=== PATIENT | male | born 1955 | race Caucasian/White ===

== ENCOUNTER 2018-07-19 20:00 | Inpatient (IN) | payer OTHER ==
[~2018-07-19 20:00] MED LIST: ISOVUE-370 76%-LOCM 1 ML ONE; Iopamidol 370 76% 50 ML VIAL FS ONE
[2018-07-19 21:28] LABS: #Eosinphils 0.4 thou/uL (0.0-0.7); #Lymphocytes 1.8 thou/uL (1.20-3.40); #Monocytes 0.5 thou/uL (0.11-0.59); #Neutrophils 3.2 thou/uL (1.40-6.50); %Basophils 0.7 % (0.0-1.0); %Eosinophils 6.4 % (0.0-10.0); %Lymphocytes 29.7 % (21.0-51.0); %Monocytes 9.1 % (0.0-10.0); %Neutrophils 54.1 % (42.0-75.0); Hemoglobin 10.4 g/dL (14.0-18.0); Mean Corpuscular HGB CONC 31.7 g/dL (32.0-36.0); Mean Corpuscular Hemoglobin 24.8 pg (27.0-31.0); Mean Corpuscular Volume 78.3 fL (78.0-98.0); Mean Platelet Volume 6.8 fL (7.4-10.4); Platelet Count 235 thou/uL (130-400); RBC Distribution Width 14.1 % (11.5-14.5); Red Blood Cell (RBC) Count 4.18 mill/uL (4.70-6.10); White Blood Cell (WBC) Count 5.9 thou/uL (4.8-10.8)
[2018-07-19 21:33] LABS: PTT 29.5 SEC (22.9-36.1)
[2018-07-19 21:50] LABS: ALT (SGPT) 16 U/L (8-55); AST (SGOT) 19 U/L (5-34); Albumin 4.3 g/dL (3.4-4.8); Alkaline Phosphatase 84 U/L (40-150); Anion Gap 13 mmol/L (10-20); BUN (Urea Nitrogen) 11 mg/dL (8.4-25.7); Bilirubin, Total 0.4 mg/dL (0.2-1.2); Calc. Creatinine Clearance 0 mL/min (70-130); Calcium 9.7 mg/dL (7.8-10.44); Carbon Dioxide 29 mmol/L (23-31); Chloride 99 mmol/L (98-107); Estimated GFR-MDRD 85; Globulin 3.7 g/dL (2.4-3.5); Glucose 193 mg/dL (80-115); Potassium 3.9 mmol/L (3.5-5.1); Sodium 137 mmol/L (136-145)
[2018-07-19] MEDS ORDERED: Pantoprazole 40 MG VIAL ONE (22:02)
[2018-07-19] MEDS ORDERED: Ondansetron PF 4 MG/2 ML Vial ONE (23:31)
[2018-07-19] MEDS ORDERED: Morphine 4 MG/ML VIAL ONE (23:31)
[2018-07-20] MEDS ORDERED: Dextrose 5 % And 0.9 % NaCl 1,000 ML IV SCH (00:01)
[2018-07-20 00:05] VITALS: BMI 22.5
--- NOTE | 2018-07-20 00:15 | CT ---
CT OF THE ABDOMEN AND PELVIS WITH IV CONTRAST: 07/19/18 INDICATION: History of rectal bleeding and lower abdominal pain. FINDINGS: There is a suspected heterogeneous mass seen within the rectum with some intussusception of portions of the sigmoid colon into the proximal rectum. There is no evidence of colonic obstruction. There is a moderate amount of retained stool within the colon. There is moderate distention of the bladder wit h slight prominence of both renal collecting systems. There is a very tiny subcentimeter hypodensitie s within segment VII and of the right hepatic lobe. The pancreas, adrenal glands, and spleen appea r within normal limits. Small bowel is of normal caliber. There are scattered degenerative and osteoa rthritic change. IMPRESSION: 1. Findings suspicious for a mid rectal mass with some intussusception of portions of the sigmoi d colon and proximal rectum. There is no evidence of upstream colonic obstruction. There is a mild to moderate amount of retained stool within the colon. 2. Prominent distention of the bladder may reflect component of bladder outlet obstruction. Navjot mmend consideration for Brunson catheter. 3. Tiny right hepatic lobe hypodensities too small to characterize. 4. Other findings as above. POS: [facility]
[2018-07-20] MEDS ORDERED: Dextrose 50% Abboject 50 ML SYRINGE SLOW IVP PRN (01:04)
[2018-07-20] MEDS ORDERED: Dextrose 5% in Water 1,000 ML IV PRN (01:04)
[2018-07-20] MEDS ORDERED: Ondansetron PF 4 MG/2 ML Vial IVP PRN (01:04)
[2018-07-20] MEDS: Sodium Chloride 0.9% 1,000 ML IV SCH ×2 (01:25→14:55)
[2018-07-20] MEDS: Acetaminophen 325 MG TAB PO PRN ×2 (04:50→21:56)
[2018-07-20] MEDS ORDERED: GoLYTELY 4,000 ml Bottle PO SCH ×3 (05:55→13:15)
[2018-07-20 06:14] LABS: #Eosinphils 0.4 thou/uL (0.0-0.7); #Lymphocytes 1.4 thou/uL (1.20-3.40); #Monocytes 0.4 thou/uL (0.11-0.59); #Neutrophils 2.6 thou/uL (1.40-6.50); %Basophils 0.5 % (0.0-1.0); %Eosinophils 7.6 % (0.0-10.0); %Lymphocytes 29.8 % (21.0-51.0); %Monocytes 7.8 % (0.0-10.0); %Neutrophils 54.4 % (42.0-75.0); Mean Corpuscular HGB CONC 30.6 g/dL (32.0-36.0); Mean Corpuscular Hemoglobin 24.1 pg (27.0-31.0); Mean Corpuscular Volume 78.7 fL (78.0-98.0); Mean Platelet Volume 7.2 fL (7.4-10.4); Platelet Count 226 thou/uL (130-400); RBC Distribution Width 14.2 % (11.5-14.5); Red Blood Cell (RBC) Count 3.73 mill/uL (4.70-6.10); White Blood Cell (WBC) Count 4.8 thou/uL (4.8-10.8)
--- NOTE | 2018-07-20 06:16 | HP ---
REASON FOR ADMISSION: Bleeding per rectum, rectal mass. HISTORY OF PRESENT ILLNESS: The patient came to ER with complaints of large amount of blood per rectum around 3:00 p.m. He also has a colicky abdominal pain in his lower quadrant from 3-4 weeks which has been gradually worsening. The patient states he has had off and on small amounts of bleeding from his rectum, but not as large in amounts as today. No prior history of colonoscopy. No prior history of hematemesis or upper endoscopy. No history of peptic ulcer disease. PAST MEDICAL AND SURGICAL HISTORY: Hypertension, diabetes mellitus type 2, dyslipidemia. No prior surgical history. CURRENT MEDICATIONS: The patient is on carvedilol 25 mg daily, pravastatin 40 mg p.o. at bedtime, metformin with combination medication twice daily, Levemir 15 units subcu twice daily. ALLERGIES: No known drug allergies. PERSONAL HISTORY: Drinks 2-7 cans of beers daily. Does not abuse drugs. No history of smoking. Lives with his . FAMILY HISTORY: Mother in her 80s from brain aneurysm. Father of massive MO at the age of 60. CODE STATUS: FULL. Power of claims attorney is his . REVIEW OF SYSTEMS: The following complete review of systems was negative, unless otherwise mentioned in the HPI or below: Constitutional: Weight loss or gain, ability to conduct usual activities. Skin: Rash, itching. Eyes: Double vision, pain. ENT/Mouth: Nose bleeding, neck stiffness, pain, tenderness. Cardiovascular: Palpitations, dyspnea on exertion, orthopnea. Respiratory: Shortness of breath, wheezing, cough, hemoptysis, fever or night sweats. Gastrointestinal: Poor appetite, abdominal pain, heartburn, nausea, vomiting, constipation, or diarrhea. Genitourinary: Urgency, frequency, dysuria, nocturia. Musculoskeletal: Pain, swelling. Neurologic/Psychiatric: Anxiety, depression. Allergy/Immunologic: Skin rash, bleeding tendency. PHYSICAL EXAMINATION: GENERAL: The patient is a 63-year-old male who is currently not in any acute distress. VITAL SIGNS: Blood pressure 156/84, pulse 110 per minute, respiratory rate 18 per minute, temperature 98.4 degrees Fahrenheit, saturating 98% on room air. NECK: Supple, no elevated JVD. HEENT: Eyes: Extraocular muscles intact. Pupils reacting to light. Oral cavity: Mucous membranes are moist. No exudates or congestion. CARDIOVASCULAR SYSTEM: S1, S2 heard. Regular rhythm. RESPIRATORY SYSTEM: Air entry 1+ bilateral. No rales or rhonchi. ABDOMEN: Soft, bowel sounds heard. There is mild tenderness in the lower quadrants. No rigidity or guarding. EXTREMITIES: No peripheral edema or calf tenderness. VASCULAR SYSTEM: Peripheral pulses 1+ bilateral, no ischemic ulcerations or gangrene. CENTRAL NERVOUS SYSTEM: No gross focal deficits noted. The patient is alert, awake, oriented well. PSYCHIATRIC SYSTEM: The patient's mood is euthymic. No hallucinations or delusions. LABORATORY AND X-RAY FINDINGS: CT of the abdomen and pelvis done show findings suspicious of mid rectal mass with intussusception of portions of sigmoid colon and proximal rectum. No evidence of upstream colonic obstruction. There is mild to moderate amount of retained stool within the colon. There also prominent distention of bladder which could reflect outlet obstruction. White count of 5.9, H&H 10 and 32, platelet count 235, MCV 78 with 54% neutrophils. PT and INR 13 and 1.0. Electrolytes are stable. BUN 11, creatinine 0.9. Serum glucose 193, albumin is 4.3. Liver enzymes within normal limits. Plasma alcohol level is less than 10. Stool occult blood is positive. CLINICAL IMPRESSION AND PLAN: The patient will be admitted to medical floor for lower gastrointestinal bleed, rectal mass. The patient also has enlarged urinary bladder, likely has outlet obstruction versus due to rectal disease. We will keep him n.p.o. We will obtain GI consultation, Dr. Justin Jones who is cash applications associate today. He will be on normal saline at 70 mL per hour. We will obtain CEA levels and PSA levels as well. Also place him on Flomax. The patient will be on Humalog coverage for now as he is n.p.o. We will continue his carvedilol 3.125 mg twice daily. The patient's primary care physician is Dr. Abbey Powers in [place]. Addendum: he has tried multiple times to pass urine with very little trickle of urine streaming. Bladder residual is 800ml and will place a hutchison catheter. D/w this am about his CT findings and will see him shortly after he finishes golytely prep. [facility]
[2018-07-20 06:23] LABS: Anion Gap 11 mmol/L (10-20); BUN (Urea Nitrogen) 8 mg/dL (8.4-25.7); Calc. Creatinine Clearance 91 mL/min (70-130); Calcium 8.7 mg/dL (7.8-10.44); Carbon Dioxide 27 mmol/L (23-31); Chloride 104 mmol/L (98-107); Estimated GFR-MDRD Greater than 90; Glucose 160 mg/dL (80-115); Potassium 3.9 mmol/L (3.5-5.1); Sodium 138 mmol/L (136-145)
[2018-07-20 06:40] LABS: CEA, Serum 1.62 ng/mL (< or = 5.0)
[2018-07-20 06:41] LABS: PSA-Asymptomatic (SCREENING) 0.76 ng/mL (0-4.0)
[2018-07-20] MEDS: Pantoprazole 40 MG VIAL IVP SCH ×2 (08:58→21:56)
[2018-07-20] MEDS: Tamsulosin HCl 0.4 MG CAP PO SCH ×2 (08:58→21:56)
--- NOTE | 2018-07-20 09:13 | PRG ---
DATE OF SERVICE: 07/20/2018 SUBJECTIVE: The patient was seen and examined at bedside. He says that he feels significantly jarrell r this morning. He was admitted last night and he is getting bowel prep for possible scoping by the GI. He has some discomfort in the lower abdomen, but otherwise he is feeling fine. No more bleeding from his rectum. He is n.p.o. OBJECTIVE: VITAL SIGNS: Blood pressure is 150/75, pulse is 93, temperature 97.4, respiratory rate is 16, O2 sat urations 100% on room air. HEENT: His head is atraumatic, normocephalic. Eyes are PERRLA. Sclerae nonicteric. Oral mucosa is slightly dry. NECK: Supple, no lymphadenopathy. Thyroid is not palpable. LUNGS: Clear. HEART: S1, S2 normal, no S3, no S4, no murmur. ABDOMEN: Soft. Mildly tender in the lower parts. No guarding, no masses. Bowel sounds are present , no organomegaly. EXTREMITIES: No clubbing, cyanosis or edema. NEUROLOGIC: He is alert and oriented x4. There is not any sensorimotor deficits present. Cranial n erves are intact. LABORATORY DATA: Showed white count of 4.8, hemoglobin 9.0, hematocrit 29.4, platelet count is 226. Normal electrolytes, BUN 8, creatinine 0.77. Glycemia is ranging from 158-193. CEA is 1.62. PROOF CLERK 0 .76. IMPRESSION: 1. Lower gastrointestinal bleeding which slowed down, not as bad as it was yesterday, but there is s uspicion of a rectal mass. The patient is getting prepped for the scoping and GI specialist, Dr. Mason re is going to make decision about the next evaluation step. The patient's hemoglobin is 9.4, yester day it was 10.4, so this reflects the blood loss. 2. Diabetes mellitus. 3. Hypertension. 4. Hyperlipidemia. PLAN: To keep him n.p.o., continue his IV fluids at 70 mL per hour. He was started on Flomax yester day. We will continue sliding scale p.r.n. He will be seen by Dr. Jones and Dr. Boyer for GI and Ur ology evaluation today. We will use DVT prophylaxis with sequential compression devices and no hepar in.
[2018-07-20] MEDS ORDERED: PROPOFOL 200 MG/20 ML VIAL ONE (10:43)
[2018-07-20] MEDS ORDERED: Lidocaine 1% PF 5 ML VIAL ONE (10:43)
--- NOTE | 2018-07-20 13:50 | CON ---
DATE OF CONSULTATION: 07/20/2018. CHIEF COMPLAINT: Blood in the stool. HISTORY OF PRESENT ILLNESS: Mr. Montiel is a 63-year-old man who has had mild on and off rectal bleedi ng over the last month, a couple times a week; however, yesterday he developed a larger volume red bl ood from the rectum mixed with clots. He had pretty severe lower cramping abdominal pain associated with that, which is currently resolved. He has had no nausea or vomiting. He had trouble urinating along with these symptoms. He has had no fever. He has lost around 14 pounds over the last year. H is lower abdominal pain went on for several hours last night, but it is now resolved. PAST MEDICAL HISTORY: Hypertension, diabetes mellitus, dyslipidemia. PAST SURGICAL HISTORY: Had a cyst on his shoulder removed and a finger surgery in the past. FAMILY HISTORY: Positive for colon cancer in an uncle. HABITS: He drinks around a six pack a day. He can drink up to 12 pack a day. No drugs. No smoking . ALLERGIES: No known drug allergies. MEDICATIONS: Prior to admission, insulin, pravastatin, carvedilol. REVIEW OF SYSTEMS: Negative x10 systems reviewed except as stated in history of present illness. PHYSICAL EXAMINATION: VITAL SIGNS: Temperature 98.0, pulse 84, blood pressure 147/76. GENERAL: He is in no acute distress. He is alert and oriented x3. HEENT: Eyes have no scleral icterus. Oropharynx is clear, without lesions. NECK: No cervical or supraclavicular lymphadenopathy. LUNGS: Clear to auscultation bilaterally. HEART: Regular rate and rhythm without murmur. ABDOMEN: Soft, nontender, nondistended. Bowel sounds are present. EXTREMITIES: No lower extremity edema. NEUROLOGIC: Cranial nerves are grossly intact. LABORATORY DATA: White blood cell count 4.8, hemoglobin 9.0, MCV 78.7, platelets 226. INR 1.0. Cre atinine 0.77, bilirubin 0.4, AST 19, ALT 16, alkaline phosphatase 84, albumin 4.3. CEA 1.62. IMPRESSION: 1. Rectal mass by CT scan. 2. Hematochezia, rule out colon cancer. 3. Microcytic anemia. 4. Alcohol abuse. 5. He has had some degree of urinary outlet obstructive symptoms. He has a Brunson catheter in place now. RECOMMENDATIONS: We will plan colonoscopy today.
[2018-07-20] MEDS ORDERED: Promethazine HCl 25 MG/ML VIAL IM PRN (18:57)
[2018-07-20] MEDS ORDERED: Ondansetron HCl/PF 4 MG/2 ML Vial IVP PRN (18:57)
[2018-07-20] MEDS ORDERED: Promethazine HCl 25 MG/ML VIAL SLOW IVP PRN (18:57)
--- NOTE | 2018-07-20 20:48 | RAD ---
PA AND LATERAL CHEST: Indication: Weight loss. Comparison: None. FINDINGS: Lungs are clear. Cardiomediastinal silhouette is within normal limits. No acute osseous abnormality i s evident. IMPRESSION: No acute cardiopulmonary abnormality. POS: [facility]
[2018-07-20] MEDS: Neomycin 500 mg Tablet PO SCH ×2 (21:57→23:50)
[2018-07-20] MEDS: Erythromycin Base 250 MG TAB PO SCH ×2 (21:57→23:50)
--- NOTE | 2018-07-21 03:03 | OP ---
DATE OF PROCEDURE: 07/20/2018 PROCEDURES: Colonoscopy with biopsy and snare polypectomy. PREOPERATIVE DIAGNOSIS: Abnormal CT scan showing a rectal mass. PROCEDURE NOTE: Informed consent was obtained from the patient. He received 6 liters of GoLYTELY pr ior to the procedure. Rectal exam was performed and the mass could be palpated in the distal rectum. The colonoscope was advanced to the rectum, there was a large necrotic circumferential mass, protru ding down to the distal rectum. This was causing an area of intussusception such that the base of th e mass was either in the proximal rectum and distal sigmoid. The mass was advanced upwards with the scope and then the scope ultimately could be passed through the mass into the more proximal colon. T he scope was advanced to the cecum where the ileocecal valve and appendiceal orifice were clearly jessica ntified. There were areas in the cecum and ascending colon had some residual stool, but overall adeq uate views were obtained and the colonic mucosa was otherwise normal. There was a 5-6 mm polyp remov ed by snare cautery polypectomy from the rectum, 6 cm above the anal verge. Retroflexed views could not be obtained in the rectum due to inadequate space. The prolapse of the mucosa back towards the r ectum occurred at least above 8 cm internally. Biopsies were obtained from the mass. IMPRESSION: 1. Proximal rectal versus distal sigmoid mass, which is circumferential and large and necrotic causi ng intussusception back towards the distal rectum. Biopsies were obtained. 2. A 5 mm to 6 mm polyp removed by cold snare polypectomy from the rectum at 6 cm above the anal lyssa ge otherwise normal colonoscopy. Parts of the cecum and ascending colon were not well visualiz ed with mild retention of stool. RECOMMENDATIONS: 1. Await histopathology. 2. Recommendation is to proceed with surgical resection of the mass. This may be distal sigmoid lyssa aliya proximal rectum. The mass is causing urinary obstruction. The mucosa has become somewhat dusky in the normal area that has the intussusception. The mass is circumferential and near obstructing an d overall I think he will ultimately need to proceed with surgery rather than starting with the radia tion therapy first. 3. Repeat colonoscopy in 1 year.
--- NOTE | 2018-07-21 03:38 | CON ---
DATE OF CONSULTATION: 07/20/2018 DATE OF ADMISSION: 07/19/2018 REASON FOR CONSULTATION: 1. Urinary retention. 2. Bleeding per rectum secondary to rectal mass. HISTORY OF PRESENT ILLNESS: Mr. Elvis Montiel is a pleasant 63-year-old white male with a presentati on of rectal bleeding and rectal mass who over the last month has also developed simultaneously obstr uctive voiding symptoms. The patient reports frequent small volume voids and in addition to that, che s a complaint of a full bladder. He presented via the emergency department last night and underwent Brunson catheter placement, which returned over 800 mL of urine, so patient is admitted and has undergo ne colonoscopic evaluation today and has a rectal mass. Patient is to undergo surgical resection of his rectal mass and being consulted specifically with regard to the patient's urinary retention episo de. ALLERGIES: No known drug allergies. OUTPATIENT MEDICATION HISTORY: 1. Patient is on Carvedilol 25 mg p.o. daily. 2. Pravastatin 40 mg p.o. at bedtime. 3. Metformin a combination medication twice daily. 4. Levemir 15 units subcutaneous twice daily. PAST MEDICAL HISTORY: 1. Hypertension. 2. Diabetes mellitus, type 2. 3. Dyslipidemia. No previous surgical history is other than procedures performed during this hospit alization. FAMILY MEDICAL HISTORY: Patient's mother is in her 80s of a brain aneurysm. Patient's [facility] er of a massive heart attack at the age of 60. SOCIAL HISTORY: Patient reports that he is not a smoker, does not abuse drugs, but does drink betwee n 2 and 7 cans of beer per day, which would place him in the alcoholic range. Patient resides with h is . REVIEW OF SYSTEMS: Constitutional: Patient does not report fever or chills, does report gross blood per rectum and urinary retention symptoms as noted. Skin: No complaints of rash, lesions, or other abnormalities. Head, Eyes, Ears, Nose, And Throat: Negative. Cardiovascular: Positive for occasi onal palpitations and dyspnea with exertion. Respiratory: Positive for a degree of shortness of ned ath. No current cough or hemoptysis. Gastrointestinal: Patient has had poor appetite, abdominal pa in, and heartburn. He does report that he had suprapubic discomfort, which is resolved with placemen t of Brunson catheter. Genitourinary: Patient reports he has had urinary urgency, frequency, dysuria, and nocturia. Patient reports frequent small volume voids and has sensation of incomplete bladder e mptying. Musculoskeletal: Negative. Neurologic: Negative. PHYSICAL EXAMINATION: VITAL SIGNS: Patient is afebrile with current temperature 97.6, pulse 93, respirations 18, O2 satura tion on room air is 99%, blood pressure is 144/70. GENERAL: This is a pleasant, relatively thin build white male in no apparent distress. HEAD, EYES, EARS, NOSE, AND THROAT: Extraocular movements are intact. Sclerae are anicteric. Oroph arynx is clear. NECK: Supple. LUNGS: Clear to auscultation bilaterally. CARDIAC: Regular rate and rhythm without murmur, rub, or gallop. ABDOMEN: Soft and nontender superiorly inferior to the umbilicus also soft to nontender at the prese nt time. Patient reports prior to catheter placement, he felt very full below the umbilicus and abov e the pubic symphysis. The symptoms largely resolved with placement of the Brunson catheter. GENITOURINARY: Indwelling Brunson catheter is in place, is draining straw-colored urine with no eviden ce of blood. Phallus is without lesion. Palpation of inguinal canals finds no evidence of inguinal canal hernia. Scrotum Testes are found present bilaterally in the scrotum. They are smooth, anodula r, nontender. There is no dominant mass noted. RECTAL: Digital rectal examination was performed. Patient has a skin tag in the midline at 6 o'cloc k. This is relatively firm. Digital rectal examination was performed. Patient's prostate gland is found to be tender approximately 35 grams in size. It is more or less diffusely indurated, which wou ld be consistent with prostatitis. Deeper palpation of the patient's rectum finds a palpable mass, w hich probably originates from the posterior rectal wall superiorly. This is soft and fleshy and appe ars to be a portion of a pedunculated mass. There is no gross bleeding. Palpation was not carried a suri 9 cm. The prostate process and the rectal mass process appeared to be separate processes to my examination. EXTREMITIES: Within normal limits. No costovertebral angle tenderness, no point tenderness along th e course of the spine. No surgical scars. PSYCHIATRIC: Patient has no significant distress did seem reassured that I told him that these were probably two separate processes. He has accepted the decision to proceed with a surgical interventio n for his rectal mass. LABORATORY AND STUDIES: Patient's white count is not elevated at 4,800, hemoglobin is 9 with hematoc rit of 29.4. There is no left shift present. Coags are within normal limits with a PT of 13, aPTT 2 9.5, INR 1.0. Serum chemistries, patient's electrolytes within normal limits. Current blood urea ni trogen is 8 with a creatinine of 0.77, glucose remains elevated at 193 and 160. A urinalysis does not appear to have been performed. Patient had a prostate specific antigen obtaine d on 07/20/2018, which returned at 0.76 nanograms per mL suggestive of a relatively small prostate an d not prostate cancer. Estimated glomerular filtration rate using MDRD formula is 90. ASSESSMENT AND PLAN: 1. Prostatitis. Patient probably should be covered longer term by 1-month course of ciprofloxacin t herapy. 2. Acute urinary retention, this is likely due to combination of factors given the patient's present ation, I would recommend starting with Flomax b.i.d., finasteride 5 mg per day, and the antibiotic th erapy as outlined for prostatitis. Voiding trial may be performed postoperatively. Patient has repe titive retention episodes postoperatively, may be managed on the medications as outlined above and re ferred to my office for a voiding trial. 3. Male health issues. Digital rectal examination not suspicious for prostate cancer. PSA within n ormal range. 4. Rectal mass and urinary retention as discussed with patient and noted on physical examination as well as subsequent review of the patient's CT scan from 07/19/2018. Patient's rectal mass process an d his current urinary retention episode appeared to be due to separate processes. At the present or[place] e, I am not anticipating a need for intraoperative evaluation of this patient. Instead, I think, his rectal mass could be resected and patient have either appropriate diversion or primary reanastomosis based on findings. At the present time, current process does not appear to involve the prostate gland directly.
[2018-07-21] MEDS ORDERED: Morphine 4 MG/ML VIAL SLOW IVP PRN (03:41)
[2018-07-21] MEDS: Sodium Chloride 0.9% 1,000 ML IV SCH ×3 (05:22→18:05)
[2018-07-21 05:59] LABS: #Eosinphils 0.1 thou/uL (0.0-0.7); #Monocytes 0.2 thou/uL (0.11-0.59); %Basophils 0.4 % (0.0-1.0); %Eosinophils 1.8 % (0.0-10.0); %Lymphocytes 18.4 % (21.0-51.0); %Monocytes 4.5 % (0.0-10.0); %Neutrophils 74.9 % (42.0-75.0); Hemoglobin 8.2 g/dL (14.0-18.0); Mean Corpuscular HGB CONC 29.9 g/dL (32.0-36.0); Mean Corpuscular Hemoglobin 24.1 pg (27.0-31.0); Mean Corpuscular Volume 80.5 fL (78.0-98.0); Mean Platelet Volume 7.3 fL (7.4-10.4); Platelet Count 207 thou/uL (130-400); Red Blood Cell (RBC) Count 3.41 mill/uL (4.70-6.10); White Blood Cell (WBC) Count 5.3 thou/uL (4.8-10.8)
[2018-07-21 06:12] LABS: Iron 16 ug/dL (65-175); Iron Binding Capacity, Total 338 mcg/dL (261-462)
[2018-07-21] MEDS: Cipro 250 MG TAB PO SCH ×2 (06:36→21:34)
[2018-07-21] MEDS ORDERED: Meropenem 2 GM, Admixture Fee 1 EACH in Sodium Chloride 0.9% 100 ML IVPB SCH (08:00)
--- NOTE | 2018-07-21 08:14 | CON ---
DATE OF CONSULTATION: 07/21/2018 HISTORY OF PRESENT ILLNESS: Elvis Montiel is a 63-year-old male patient presents to the emerge ncy room 07/19/2018 and admitted to the Hospitalist seen by Dr. Justin Jones, musical instrument maker, earlene Boyer, urologist. The patient presented with abdominal pain, constipation and urinary re tention, blood per rectum and worsening constipation. 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 He does lifting and is very active. He has had cousins and uncles with history of colon cancer, but no immediate family history of colo n cancer. The patient's CAT scan reveals significant constipation and a rectosigmoid mass. His CEA level was normal at 1.62. His hemoglobin was 10.4 and after hydration 8.2 this morning. His renal f unction is normal. On his CAT scan, he had tremendous bladder retention [address] Boyer has seen him and diagnosed with proctitis and recommend a 1 month course of Cipro, acute urinary retention due to the prostatitis and rectosigmoid mass. ALLERGIES: None. TOBACCO: None. ALCOHOL: Six beers or more a day. He often go several days without drinking without any problems. PAST SURGICAL HISTORY: Noncontributory. PAST MEDICAL HISTORY: Diabetes mellitus type 2 on insulin and oral hypoglycemics, hypertension. The patient was no history of cardiac problems or symptomatology. MEDICATIONS AT HOME: Dapagliflozin-metformin (Xigduo XR) 1 tablet daily, pravastatin daily, carvedi lol 25 mg a day. He is on sliding scale insulin. He is on Flomax 0.4 mg p.o. b.i.d. started this ho spitalization, Cipro 500 mg b.i.d. he will be on a month per Dr. Boyer, Proscar 5 mg a day started th is hospitalization. REVIEW OF SYSTEMS: Ten point noncontributory. No cardiac symptomatology. PHYSICAL EXAMINATION: VITAL SIGNS: Height 5 foot 7, 144 pounds, 22 BMI, 98.1, 93, 137/73. HEENT: Unremarkable. LUNGS: Clear to auscultation. CARDIAC: Regular rate and rhythm without murmur or gallop. ABDOMEN: Soft, nontender, nondistended, scaphoid abdomen. EXTREMITIES: Palpable pulses. No ankle edema. LABORATORY DATA: White count 5, hemoglobin 8.2. Basic metabolic profile normal. BUN 8, creatinine 0.77, glucose 160 to 126, CEA level 1.62. ASSESSMENT AND PLAN: 1. Rectosigmoid mass. The exact location of the mass is uncertain, it is an intussusception type pi cture with prolapse and I have discussed with Dr. Justin Jones rather than terry adjunctive therapy, w ould recommend primary resection with laparoscopic assisted low anterior resection with hopefully evelia cristobal anastomosis with the possibility of a diverting protective ileostomy. I discussed with the pricila ent and his daughter. He is agreeable. Questions have been answered. Risk of infection, bleeding, reoperation discussed. He will have a Brunson catheter postoperatively, probably longer than usual due to his presenting urinary retention [address] Boyer, initiated on Flomax. 2. Diabetes mellitus. 3. Hypertension. 4. Alcohol abuse.
[2018-07-21 08:16] LABS: Hemoglobin A1c 8.7 % (4.0-6.0)
--- NOTE | 2018-07-21 08:30 | PRG ---
DATE OF SERVICE: 07/21/2018 SUBJECTIVE: The patient is seen and examined at bedside. He was just seen by Dr. Bautista for General Surgery evaluation. He is going to have surgery on his rectal tumor this afternoon. OBJECTIVE: VITAL SIGNS: Blood pressure is 137/73, pulse is 93, temperature is 98.1, respiratory rate is 20, O2 saturation is 97% on room air. HEENT: Head is atraumatic, normocephalic. Eyes are PERRLA. Sclerae are nonicteric. Oral mucosa is somewhat dry. NECK: Supple, no lymphadenopathy. Thyroid is not palpable. LUNGS: Clear. HEART: S1, S2 normal, no S3, no S4, no murmur. ABDOMEN: Soft, nontender, nondistended. Bowel sounds are present. There is some mild discomfort on the lower parts of the abdomen and pelvis in palpation. No guarding, no masses. EXTREMITIES: No clubbing, cyanosis or edema. NEUROLOGIC: He is alert and oriented x4. There is not any sensory or motor deficits. Cranial nerve s are intact. LABORATORY DATA: Showed white count of 5.3, hemoglobin at 8.2, hematocrit 27.5, platelet count is 20 7, iron is 16, total iron binding capacity is 338 and ferritin level is 7.16, glycemia is ranging fro m 121-158 IMPRESSION: 1. Rectal mass as a source of lower GI bleeding. The patient improved in terms of amount of bleedin g he has and just has some watery diarrhea on and off with some blood, not much. He underwent colono scopy by Dr. Jones yesterday who identified proximal rectal versus distal sigmoid mass, which was cir cumferential and large and necrotic causing intussusception back towards the distal rectum. Biopsies were obtained. Also, there was 5 mm to 6 mm polyp removed by cold snare polypectomy from the rectum at 6 cm above the anal verge. Otherwise, he had normal colonoscopy. 2. Anemia secondary to #1. 3. Prostatitis. The patient was seen by Dr. Boyer for urology evaluation, he is supposed to be on c iprofloxacin for 1 month. 4. Acute urinary retention, which is most likely due to combination of factors given the patient's p resentation. He started on Flomax and finasteride and continued on antibiotics. The plan is to do a voiding trial after the surgery. 5. Diabetes mellitus, well-controlled. 6. Hypertension, stable. 7. Hyperlipidemia, stable. PLAN: As mentioned above, surgery will be today, this afternoon. Continue IV fluids. Awaiting Path ology report from biopsy done yesterday. Continue his sliding scale with Humalog. Continue meropene m 2 grams. Continue ciprofloxacin and deep venous thrombosis prophylaxis. We will try to find out h is home medications. We know that he is on carvedilol, pravastatin, and dapagliflozin at home.
[2018-07-21] MEDS: Tamsulosin HCl 0.4 MG CAP PO SCH ×2 (09:37→21:34)
[2018-07-21] MEDS: Pantoprazole 40 MG VIAL IVP SCH ×2 (09:37→21:33)
[2018-07-21] MEDS: Finasteride 5 MG TAB PO SCH (09:37)
[2018-07-21] MEDS ORDERED: Lorazepam 1 MG TAB PO PRN (12:15)
[2018-07-21 13:11] LABS: CKMB 1.7 ng/mL (0-6.6); Troponin I Less than 0.010 ng/mL (< 0.028)
[2018-07-21] MEDS ORDERED: PROPOFOL 200 MG/20 ML VIAL ONE (13:12)
[2018-07-21] MEDS ORDERED: Ondansetron PF 4 MG/2 ML Vial ONE (13:12)
[2018-07-21] MEDS ORDERED: Lidocaine 1% PF 5 ML VIAL ONE (13:12)
[2018-07-21] MEDS ORDERED: Glycopyrrolate 0.2 MG/ML 5 ML SYRINGE ONE (13:12)
[2018-07-21] MEDS ORDERED: Ketorolac Tromethamine 30 MG/ML VIAL ONE (13:12)
[2018-07-21] MEDS ORDERED: Dexamethasone 20 MG/5 ML VIAL ONE (13:12)
[2018-07-21] MEDS ORDERED: Ketorolac Tromethamine 30 MG/ML VIAL IVP PRN (16:10)
[2018-07-21] MEDS ORDERED: Ondansetron HCl/PF 4 MG/2 ML Vial IVP PRN ×2 (16:10→20:12)
[2018-07-21] MEDS ORDERED: Midazolam HCl 2 mg/2 ml Vial ONE (16:14)
--- NOTE | 2018-07-21 16:40 | EKG ---
Test Reason : Blood Pressure : / mmHG Vent. Rate : 091 BPM Atrial Rate : 091 BPM P-R Int : 184 ms QRS Dur : 092 ms QT Int : 386 ms P-R-T Axes : 060 -34 042 degrees QTc Int : 474 ms Normal sinus rhythm Left axis deviation Inferior infarct (cited on or before 19-JUL-2018) Abnormal ECG When compared with ECG of 19-JUL-2018 23:03, (Unconfirmed) Incomplete right bundle branch block is no longer Present Confirmed by DR. Rzaa WILSON ([id number]) on 07/21/2018 4:40:18 PM Referred By: MARY ANNE Confirmed By:DR. Raza WILSON
--- NOTE | 2018-07-21 16:48 | EKG ---
Test Reason : Blood Pressure : / mmHG Vent. Rate : 098 BPM Atrial Rate : 098 BPM P-R Int : 176 ms QRS Dur : 084 ms QT Int : 370 ms P-R-T Axes : 053 -20 027 degrees QTc Int : 472 ms Normal sinus rhythm Low voltage QRS When compared with ECG of 20-JUL-2018 22:34, (Unconfirmed) No significant change was found Confirmed by DR. Raza WILSON ([id number]) on 07/21/2018 4:48:26 PM Referred By: ABEBE Confirmed By:DR. Raza WILSON
[2018-07-21] MEDS ORDERED: Fentanyl 250 MCG/5 ML VIAL ONE ×2 (17:19→19:20)
[2018-07-21] MEDS ORDERED: Bupivacaine/Epinephrine 0.25% 30 ML VIAL ONE (17:35)
[2018-07-21] MEDS ORDERED: HYDROmorphone 2 MG/ML VIAL SLOW IVP PRN (20:12)
[2018-07-21] MEDS ORDERED: Morphine Sulfate 2 MG/ML SYRINGE SLOW IVP PRN (20:12)
[2018-07-21] MEDS ORDERED: Promethazine HCl 25 MG/ML VIAL SLOW IVP PRN (20:12)
[2018-07-21] MEDS ORDERED: Promethazine HCl 25 MG/ML VIAL IM PRN (20:12)
[2018-07-21] MEDS ORDERED: Meperidine HCl/PF 25 MG/ML VIAL SLOW IVP PRN (20:12)
[2018-07-21] MEDS ORDERED: PACU-Morphine 4MG/ML VIAL SLOW IVP PRN (20:12)
[2018-07-21] MEDS ORDERED: Labetalol HCl 100 MG/20 ML VIAL ONE (20:34)
[2018-07-21] MEDS ORDERED: Fentanyl 100 MCG/2 ML VIAL ONE (20:47)
[2018-07-21] MEDS ORDERED: Labetalol HCl 100 MG/20 ML VIAL SLOW IVP SCH (21:30)
[2018-07-21] MEDS: Enoxaparin Sodium 40 MG/0.4 ML SYRINGE SC SCH (21:33)
[2018-07-21] MEDS: Oxazepam 10 MG CAP PO SCH (21:34)
[2018-07-22] MEDS: Acetaminophen 1,000 MG in Premix Bag 1 BAG IVPB SCH ×3 (00:55→12:06)
[2018-07-22] MEDS: Ketorolac Tromethamine 30 MG/ML VIAL IVP SCH ×3 (00:55→17:57)
--- NOTE | 2018-07-22 02:16 | OP ---
PREOPERATIVE DIAGNOSES: Sigmoid tumor with intussusception colorectal (sigmoid colon into the rectum ). Near obstructing tumor. POSTOPERATIVE DIAGNOSES: Sigmoid tumor with intussusception colorectal (sigmoid colon into the rectu m). Near obstructing tumor. PROCEDURES: Laparoscopic mobilization of splenic flexure, left colon, with infraumbilical open incis ion to reduce intussusception and a colorectal resection with low anterior resection 33 mm EEA staple r, colorectal anastomosis checked under water and no leak, good bowel prep. No other remarkable find ings. Large tumor mass in the mid to slightly distal sigmoid colon intussuscepting. SURGEON: Dr. Saeed Bautista ANESTHESIA: General. ESTIMATED BLOOD LOSS: 100 mL BLOOD TRANSFUSED: None. DESCRIPTION OF PROCEDURE: The patient was taken to the operating room where under general anesthesia in dorsal lithotomy position, abdomen prepared with ChloraPrep. Perineum, buttocks, scrotum, and pe nis prepared with Betadine, draped in routine fashion. Infraumbilical incision made. Pneumoperitone um to 15 mmHg obtained with the Veress needle, replacing it with a 5 port and laparoscope inserted. Right lower quadrant incision made and a 12-port placed. Right upper quadrant, left upper quadrant i ncision made and 5 mm ports placed. The distal transverse colon, splenic flexure mobilized with the LigaSure, taking down the gastrocolic ligament from the distal transverse colon, mobilizing the splen ic flexure. Sigmoid colon mobilized with attachments using the LigaSure. Left ureter identified and kept free of harm. Colon mobilized and it was appreciated that there is intussusception sigmoid col on to the rectum and I could not reduce this laparoscopically. This required infraumbilical incision made midline to the pubis skin and subcutaneous tissue. Bookwalter retractor was used using manual retraction and counter pushing with the other hand. I was able to reduce intussusception revealing a near obstructing mid to slightly distal sigmoid colon mass. Mesentery of the descending colon, sigm oid colon junction taken down with the LigaSure and dissection carried down keeping ureter free of hce rm, dividing the left colic vessels between clamps and ligated with 2-0 silk ties and dissection bray ied down to the presacral area. The colorectal area was divided with a contour stapler and using the cautery. The junction of the descending sigmoid colon, the colon was divided with the cautery and a pursestring suture of 2-0 Prolene placed and a 33 mm EEA anvil had been placed in the colon and purs estring suture secured. We did change gloves and abdominal cavity irrigated. The rectal stump was e valuated and noted to be skeletonized adequate fat. Tug Master then turned attention to the rectum wh ere serial dilators were placed easily and then a 33 mm EEA stapler placed and advancing the post of the staple line of the rectal stump and connected to the anvil in the proximal colon approximating th ashley within the torque fire range and fired the stapler, loosening it, removing it, noting intact donu ts. It was checked under water without leak. Colorectal serosa muscle layer approximated with inter rupted Lembert suture of 3-0 silk. Good hemostasis noted. Sponge, instrument counts were correct. No other abnormalities were noted. Midline fascia closed with continuous suture of #1 PDS. Skin and subcutaneous tissues irrigated, skin approximated with subcuticular suture of 4-0 Monocryl and Idalia Glue applied. Local anesthetic infiltrated into the skin and subcutaneous tissue about the operative site. The patient tolerated the procedure well.
[2018-07-22 05:08] LABS: #Lymphocytes 0.6 thou/uL (1.20-3.40); #Monocytes 0.2 thou/uL (0.11-0.59); #Neutrophils 8.2 thou/uL (1.40-6.50); %Eosinophils 0.1 % (0.0-10.0); %Monocytes 2.6 % (0.0-10.0); %Neutrophils 90.3 % (42.0-75.0); Mean Corpuscular HGB CONC 30.2 g/dL (32.0-36.0); Mean Corpuscular Hemoglobin 24.6 pg (27.0-31.0); Mean Corpuscular Volume 81.5 fL (78.0-98.0); Mean Platelet Volume 7.2 fL (7.4-10.4); Platelet Count 202 thou/uL (130-400); RBC Distribution Width 13.7 % (11.5-14.5); Red Blood Cell (RBC) Count 3.27 mill/uL (4.70-6.10); White Blood Cell (WBC) Count 9.1 thou/uL (4.8-10.8)
[2018-07-22 05:41] LABS: Anion Gap 15 mmol/L (10-20); BUN (Urea Nitrogen) 9 mg/dL (8.4-25.7); Calc. Creatinine Clearance 100 mL/min (70-130); Calcium 8.5 mg/dL (7.8-10.44); Carbon Dioxide 17 mmol/L (23-31); Chloride 110 mmol/L (98-107); Estimated GFR-MDRD Greater than 90; Glucose 210 mg/dL (80-115); Potassium 4.4 mmol/L (3.5-5.1); Sodium 138 mmol/L (136-145)
[2018-07-22] MEDS: Cipro 250 MG TAB PO SCH ×2 (06:33→21:23)
[2018-07-22] MEDS ORDERED: Carvedilol 25 MG TAB PO SCH (09:00)
[2018-07-22] MEDS: Morphine 2 MG/ML SYRINGE SLOW IVP PRN ×2 (09:10→14:37)
[2018-07-22] MEDS: Pantoprazole 40 MG VIAL IVP SCH ×2 (09:12→21:23)
[2018-07-22] MEDS: Tamsulosin HCl 0.4 MG CAP PO SCH ×2 (09:13→21:23)
[2018-07-22] MEDS: Folic Acid 1 MG TAB PO SCH (09:13)
[2018-07-22] MEDS: Oxazepam 10 MG CAP PO SCH ×3 (09:13→21:25)
[2018-07-22] MEDS: Finasteride 5 MG TAB PO SCH (09:13)
[2018-07-22] MEDS ORDERED: Ketorolac Tromethamine 30 MG/ML VIAL IVP SCH (11:30)
[2018-07-22] MEDS ORDERED: traMADol HCl 50 MG TAB PO PRN ×4 (11:42→12:36)
--- NOTE | 2018-07-22 11:48 | PRG ---
DATE OF SERVICE: 07/22/2018 SUBJECTIVE: Mr. Montiel has pain which is controlled with morphine. He has no nausea or vomiting. He has felt some gurgling in his stomach, but has not passed any gas yet. OBJECTIVE: VITAL SIGNS: Temperature 98.3, pulse 93, blood pressure 110/58. GENERAL: He is in no acute distress. He is alert and oriented x3. LUNGS: Clear to auscultation bilaterally. HEART: Regular rate and rhythm without murmur. ABDOMEN: Soft, minimal tenderness. Bowel sounds are not present yet. EXTREMITIES: No lower extremity edema. LABORATORY DATA: White blood cell count 9.1, hemoglobin 8.0, platelets 202. Creatinine 0.7. IMPRESSION: Near obstructing sigmoid colon mass, status post low anterior resection yesterday by Dr. Bautista. PLAN: 1. Await histopathology. 2. Postoperative care per General Surgery.
[2018-07-22] MEDS ORDERED: traMADol HCl 50 MG TAB PO SCH (12:00)
[2018-07-22] MEDS: HumaLOG 300 UNITS/3 ML VIAL SC PRN ×3 (12:06→21:28)
[2018-07-22] MEDS ORDERED: Acetaminophen 500 MG TAB PO PRN (12:34)
--- NOTE | 2018-07-22 13:00 | PDOC.PN ---
- Subjective Encounter Start Date: 07/22/18 Encounter Start Time: 10:50 Subjective: no abd pain now or nausea -: is tolerating liq diet -: no flatus or bm yet - Objective Resuscitation Status: Resuscitation Status FULL:Full Resuscitation MAR Reviewed: Yes Vital Signs & Weight: Vital Signs (12 hours) Temp Pulse Resp BP Pulse Ox 07/22/18 11:42 98.1 F 67 16 110/63 96 07/22/18 07:43 98.3 F 93 18 110/58 L 93 L Weight Weight 144 lb 1 oz I&O: 07/21/18 07/22/18 07/23/18 06:59 06:59 06:59 Output Total 750 Balance -750 Result Diagrams: 07/22/18 04:38 07/22/18 04:38 Additional Labs: Accuchecks 07/21/18 07/21/18 20:32 15:30 POC Glucose 158 H 103 Phys Exam - Physical Examination HEENT: PERRLA, moist MMs Neck: no JVD, supple Respiratory: no wheezing, no rales Cardiovascular: RRR, no significant murmur Gastrointestinal: soft, no distention Musculoskeletal: no edema, pulses present Neurological: non-focal, moves all 4 limbs Psychiatric: normal affect, A&O x 3 Dx/Plan (1) Rectal mass Code(s): K62.9 - DISEASE OF ANUS AND RECTUM, UNSPECIFIED Status: Acute Comment: s/p low ant resection (2) Urinary retention Code(s): R33.9 - RETENTION OF URINE, UNSPECIFIED Status: Acute Comment: in [place] (3) Anemia Code(s): D64.9 - ANEMIA, UNSPECIFIED Status: Acute Qualifiers: Anemia type: iron deficiency (4) GI bleed Code(s): K92.2 - GASTROINTESTINAL HEMORRHAGE, UNSPECIFIED Status: Acute Qualifiers: GI bleed type/associated pathology: anorectal hemorrhage Qualified Code(s) : K62.5 - Hemorrhage of anus and rectum - Plan is on liq diet -: to amb in hallway as tolerated -: await bowel function to resume -: histopath is pending -: hb around 8g * . change coreg to 12.5mg bid flomax, proscar cipro, ultram, toradol oxazepam, thiamine for alc abuse Review of Systems - Medications/Allergies Allergies/Adverse Reactions: Allergies Allergy/AdvReac Type Severity Reaction Status Date / Time No Known Drug Allergies Allergy Verified 07/19/18 23:59 Medications: Current Medications Acetaminophen (Tylenol) 1,000 mg PO Q6H PRN PRN Reason: PAIN 1-3 Carvedilol (Coreg) 25 mg PO DAILY [facility] Last Admin: 07/22/18 09:12 Dose: 25 mg Ciprofloxacin (Cipro) 500 mg PO BID@0600,2000 [facility] Last Admin: 07/22/18 06:33 Dose: 500 mg Dextrose/Water (Dextrose 50%) 25 gm SLOW IVP PRN PRN PRN Reason: Hypoglycemia Enoxaparin Sodium (Lovenox) 40 mg SC 2100 [facility] Last Admin: 07/21/18 21:33 Dose: 40 mg Finasteride (Proscar) 5 mg PO DAILY [facility] Last Admin: 07/22/18 09:13 Dose: 5 mg Folic Acid (Folvite) 1 mg PO DAILY [facility] Last Admin: 07/22/18 09:13 Dose: 1 mg Glucagon (Glucagon) 1 mg IM PRN PRN PRN Reason: Hypoglycemia Dextrose/Water (D5w) 1,000 mls @ 0 mls/hr IV .Q0M PRN PRN Reason: Hypoglycemia Insulin Human Lispro (Humalog) 0 units SC .MILD SLIDING SCALE PRN PRN Reason: Mild Correctional Scale Last Admin: 07/22/18 12:06 Dose: 5 unit Insulin Human Lispro (Humalog) 0 units SC .BEDTIME SLIDING SC PRN PRN Reason: Bedtime Correctional Scale Ketorolac Tromethamine (Toradol) 30 mg IVP NOW [facility] Stop: 07/22/18 13:30 Last Admin: 07/22/18 12:05 Dose: 30 mg Ketorolac Tromethamine (Toradol) 15 mg IVP Q6HR [facility] Stop: 07/27/18 18:01 Morphine Sulfate (Morphine) 2 mg SLOW IVP Q4H PRN PRN Reason: BREAKTHRU PAIN Last Admin: 07/22/18 09:10 Dose: 2 mg Ondansetron HCl (Zofran) 4 mg IVP Q6H PRN PRN Reason: Nausea/Vomiting Oxazepam (Serax) 10 mg PO TID [facility] Last Admin: 07/22/18 09:13 Dose: 10 mg Pantoprazole Sodium (Protonix) 40 mg IVP Q12HR [facility] Last Admin: 07/22/18 09:12 Dose: 40 mg Sodium Chloride (Flush - Normal Saline) 10 ml IV Q12HR [facility] Last Admin: 07/22/18 09:13 Dose: 10 ml Tamsulosin HCl (Flomax) 0.4 mg PO BID [facility] Last Admin: 07/22/18 09:13 Dose: 0.4 mg Thiamine HCl (Thiamine) 100 mg PO DAILY [facility] Last Admin: 07/22/18 09:12 Dose: 100 mg Tramadol HCl (Ultram) 50 mg PO Q6H PRN PRN Reason: PAIN SCALE 4-6 Tramadol HCl (Ultram) 100 mg PO Q6H PRN PRN Reason: PAIN SCALE 7-10
--- NOTE | 2018-07-22 15:14 | PRG ---
DATE OF SERVICE: 07/22/2018 SUBJECTIVE: I am seeing Mr. Montiel, 63-year-old gentleman who underwent left colectomy with primary a nastomosis yesterday by Dr. Bautista. Surgery was essentially uneventful. The patient is awake and al ert, reporting adequate pain control this morning. Urinary output has been adequate. OBJECTIVE: VITAL SIGNS: Today includes blood pressure 110/58, pulse 93, respiratory rate is 18, temperature is 98.3 degrees Fahrenheit and oxygen saturation 93% on room air. HEENT: Examination reveals normocephalic and atraumatic. HEART: Reveals regular rate and rhythm. No murmurs or gallops auscultated. LUNGS: Clear to auscultation bilaterally. Breathing is regular and unlabored. ABDOMEN: Soft and nondistended. Incision is intact, clean, and dry. EXTREMITIES: Reveals 2+ radial and pedal pulses bilaterally. No ankle edema is present. NEUROLOGIC: Examination reveals no focal deficits present. LABORATORY DATA: Laboratory findings today include CBC with 9,100 white blood cells, hemoglobin and hematocrit is 8.0 and 26.6 respectively. Platelet count is 202,000. Metabolic profile; sodium 138, potassium is 4.4, chloride is 110, bicarbonate is 17, BUN is 9, creatinine 0.70, glucose is 210. IMPRESSION: 1. Postoperative day #1 status post left colectomy with primary anastomosis. 2. Patient is hemodynamically stable. PLAN: Increase activity and encourage pulmonary toileting. The patient has a history of chronic alc ohol abuse; however, there is no evidence of DTs at this time.
[2018-07-22] MEDS: Carvedilol 6.25 MG TAB PO SCH (17:56)
--- NOTE | 2018-07-22 19:50 | CON ---
DATE OF INITIAL CONSULTATION: 07/20/2018 INITIAL REASON FOR CONSULTATION: 1. Urinary retention. 2. Rectum bleeding secondary to rectal mass. BRIEF HISTORY: Mr. Elvis Montiel is a very pleasant 63-year-old white male who presented with rectal bleeding and rectal mass on 07/19/2018. The patient had urinary retention as well and reported freq uent small volume voids in addition to his rectum bleeding. He underwent catheter placement prior to my initial evaluation of him and has had trouble with urinary retention. He had 800 mL retention vo lume at the time of his catheter placement. The patient decided to undergo surgical resection of his rectal mass and this was performed by Dr. Saeed Bautista on 07/21/2018. The patient today has an in dwelling Brunson catheter and is doing well. ALLERGIES: No known drug allergies. OUTPATIENT MEDICATIONS: History included, 1. Carvedilol 25 mg p.o. daily. 2. Pravastatin 40 mg p.o. at bedtime. 3. Metformin in a combination pill twice daily. 4. Levemir 15 units subcu twice daily. PAST MEDICAL HISTORY: 1. Positive for diabetes mellitus type 2 on insulin. 2. Hypertension. 3. Dyslipidemia. 4. Urinary retention as outlined above. 5. Rectal mass of the sigmoid colon now status post resection. PHYSICAL EXAMINATION: VITAL SIGNS: The patient is afebrile with temperature 97.9, pulse 76, respirations 20, O2 saturation s 95% on room air, blood pressure is 116/62. GENERAL: This is a pleasant, awake, alert, white male in no apparent distress. HEENT: Extraocular movements are intact. Sclerae are anicteric. Oropharynx is clear. NECK: Supple. LUNGS: Clear to auscultation bilaterally. CARDIOVASCULAR: Regular rate and rhythm. ABDOMEN: Soft, flat and nontender. His midline infraumbilical surgical incisional scar which is joshua ssed with skin glue. There are multiple laparoscopic ports present. GENITOURINARY: An indwelling Brunson catheter is in place. Phallus is without lesion. RECTAL: Digital rectal examination is not repeated on today's examination. I make note of my previo us assessment of the patient from 07/20/2018, patient's digital rectal examination findings were nota ble for a tender prostate gland at about 35 grams in size which was diffusely indurated consistent wi th prostatitis. EXTREMITIES: Within normal limits. LABORATORY DATA: The patient's white count today is 9.1 thousand, hemoglobin 8, hematocrit 26.6. rum chemistries showed the patient's potassium at 4.4, carbon dioxide 17. Blood urea nitrogen blood is 9 with a creatinine of 0.70 indicating an estimated MDRD GFR of greater than 90, glucose was 210 t his morning. INTERVAL EVENTS: The patient has undergone a laparoscopically-assisted sigmoid tumor mass excision a nd a low anterior resection with primary reanastomosis by Dr. Bautista on 07/21/2018. Pathology remain s pending from that. ASSESSMENT AND PLAN: Urinary retention with history of diabetes mellitus and probable prostatitis. The patient should be covered with a long course of ciprofloxacin therapy which has already been pres cribed and prescriptions are in patient's chart for that. In addition, we would recommend maximal me dical therapy for enlargement of the patient's prostate gland with Flomax 0.4 mg p.o. b.i.d. and car steride 0.5 mg p.o. daily. Patient is going to undergo a voiding trial today. We backfilled his luis f dder to capacity of 300 mL. He was not immediately able to void force in the supine position. We al lowed him to perform a voiding trial after catheter removal. The patient remains in urinary retentio n. Catheter may be replaced and he can be discharged home with a Brunson catheter in place for a voidi ng trial in my office. With prostatitis and BPH swelling of the prostate gland may take a while to g o down, this is not a requirement to stay in hospital for management of a Brunson catheter. Over 35 minutes of consultation, assessment and voiding trial time spent with the patient today.
[2018-07-22] MEDS: Enoxaparin Sodium 40 MG/0.4 ML SYRINGE SC SCH (21:23)
[2018-07-23] MEDS: Ketorolac Tromethamine 30 MG/ML VIAL IVP SCH ×2 (00:08→05:05)
[2018-07-23] MEDS: Cipro 250 MG TAB PO SCH ×2 (05:06→20:16)
[2018-07-23] MEDS: traMADol HCl 50 MG TAB PO PRN ×2 (05:06→14:37)
[2018-07-23] MEDS: HumaLOG 300 UNITS/3 ML VIAL SC PRN ×4 (05:43→23:52)
[2018-07-23] MEDS ORDERED: DAPAGLIFLOZIN PO SCH (09:00)
[2018-07-23] MEDS ORDERED: METFORMIN HCL PO SCH (09:00)
[2018-07-23] MEDS: Finasteride 5 MG TAB PO SCH (09:28)
[2018-07-23] MEDS: Folic Acid 1 MG TAB PO SCH (09:28)
[2018-07-23] MEDS: Oxazepam 10 MG CAP PO SCH ×3 (09:28→20:19)
[2018-07-23] MEDS: Carvedilol 6.25 MG TAB PO SCH ×2 (09:28→18:11)
[2018-07-23] MEDS: Tamsulosin HCl 0.4 MG CAP PO SCH ×2 (09:28→20:16)
[2018-07-23] MEDS: Insulin Glargine 10 UNITS in Pre-Filled Syringe 1 EACH SC SCH ×2 (09:28→20:19)
--- NOTE | 2018-07-23 10:32 | PDOC.PN ---
- Subjective Encounter Start Date: 07/23/18 Encounter Start Time: 08:30 Subjective: had small bm yesterday, no abd pain or nausea -: is on soft diet - Objective Resuscitation Status: Resuscitation Status FULL:Full Resuscitation MAR Reviewed: Yes Vital Signs & Weight: Vital Signs (12 hours) Temp Pulse Resp BP BP Pulse Ox 07/23/18 09:28 116/62 07/23/18 07:47 98.3 F 90 16 134/68 92 L 07/23/18 04:16 98.4 F 86 18 123/61 95 07/22/18 23:53 98.3 F 80 18 106/58 L 95 Weight Weight 144 lb 1 oz I&O: 07/22/18 07/23/18 07/24/18 06:59 06:59 06:59 Intake Total 800 Output Total 1100 Balance -300 Result Diagrams: 07/22/18 04:38 07/22/18 04:38 Additional Labs: Accuchecks 07/23/18 07/22/18 07/22/18 05:40 21:22 18:07 POC Glucose 245 H 269 H 338 H Phys Exam - Physical Examination HEENT: PERRLA, moist MMs Neck: no JVD, supple Respiratory: no wheezing, no rales Cardiovascular: RRR, no significant murmur Gastrointestinal: soft, no distention Musculoskeletal: no edema, pulses present Neurological: non-focal, moves all 4 limbs Psychiatric: normal affect, A&O x 3 Dx/Plan (1) Rectal mass Code(s): K62.9 - DISEASE OF ANUS AND RECTUM, UNSPECIFIED Status: Acute Comment: s/p low ant resection (2) Urinary retention Code(s): R33.9 - RETENTION OF URINE, UNSPECIFIED Status: Acute Comment: in [place] (3) Anemia Code(s): D64.9 - ANEMIA, UNSPECIFIED Status: Acute Qualifiers: Anemia type: iron deficiency (4) GI bleed Code(s): K92.2 - GASTROINTESTINAL HEMORRHAGE, UNSPECIFIED Status: Acute Qualifiers: GI bleed type/associated pathology: anorectal hemorrhage Qualified Code(s) : K62.5 - Hemorrhage of anus and rectum - Plan failed voiding trial yesterday, is back in [place] -: tolerating soft diet, advance per surg adv -: is on cipro, coreg, flomax and proscar -: ultram, toradol prn -: oxazepam for alc abuse, histopath pending * . Review of Systems - Medications/Allergies Allergies/Adverse Reactions: Allergies Allergy/AdvReac Type Severity Reaction Status Date / Time No Known Drug Allergies Allergy Verified 07/19/18 23:59 Medications: Current Medications Acetaminophen (Tylenol) 1,000 mg PO Q6H PRN PRN Reason: PAIN 1-3 Last Admin: 07/23/18 09:28 Dose: 1,000 mg Atorvastatin Calcium (Lipitor) 10 mg PO [facility] Carvedilol (Coreg) 12.5 mg PO BID-[facility] Last Admin: 07/23/18 09:28 Dose: 12.5 mg Ciprofloxacin (Cipro) 500 mg PO BID@0600,2000 [facility] Last Admin: 07/23/18 05:06 Dose: 500 mg Dextrose/Water (Dextrose 50%) 25 gm SLOW IVP PRN PRN PRN Reason: Hypoglycemia Enoxaparin Sodium (Lovenox) 40 mg SC 2100 [facility] Last Admin: 07/22/18 21:23 Dose: 40 mg Finasteride (Proscar) 5 mg PO DAILY [facility] Last Admin: 07/23/18 09:28 Dose: 5 mg Folic Acid (Folvite) 1 mg PO DAILY [facility] Last Admin: 07/23/18 09:28 Dose: 1 mg Glucagon (Glucagon) 1 mg IM PRN PRN PRN Reason: Hypoglycemia Dextrose/Water (D5w) 1,000 mls @ 0 mls/hr IV .Q0M PRN PRN Reason: Hypoglycemia Insulin Glargine 10 units/ (Miscellaneous Medication) 0.1 mls @ 0 mls/hr SC BID [facility] Last Admin: 07/23/18 09:28 Dose: 0.1 mls Insulin Human Lispro (Humalog) 0 units SC .MILD SLIDING SCALE PRN PRN Reason: Mild Correctional Scale Last Admin: 07/23/18 05:43 Dose: 3 unit Insulin Human Lispro (Humalog) 0 units SC .BEDTIME SLIDING SC PRN PRN Reason: Bedtime Correctional Scale Last Admin: 07/22/18 21:28 Dose: 3 unit Ketorolac Tromethamine (Toradol) 15 mg IVP Q6HR [facility] Stop: 07/27/18 18:01 Last Admin: 07/23/18 05:05 Dose: 15 mg Morphine Sulfate (Morphine) 2 mg SLOW IVP Q4H PRN PRN Reason: BREAKTHRU PAIN Last Admin: 07/22/18 14:37 Dose: 2 mg Ondansetron HCl (Zofran) 4 mg IVP Q6H PRN PRN Reason: Nausea/Vomiting Oxazepam (Serax) 10 mg PO TID [facility] Last Admin: 07/23/18 09:28 Dose: 10 mg Dapagliflozin/Metformin Hcl [ Xigduo Xr] 1 Tablet 0 each PO DAILY [facility] Tamsulosin HCl (Flomax) 0.4 mg PO BID [facility] Last Admin: 07/23/18 09:28 Dose: 0.4 mg Thiamine HCl (Thiamine) 100 mg PO DAILY [facility] Last Admin: 07/23/18 09:28 Dose: 100 mg Tramadol HCl (Ultram) 50 mg PO Q6H PRN PRN Reason: PAIN SCALE 4-6 Tramadol HCl (Ultram) 100 mg PO Q6H PRN PRN Reason: PAIN SCALE 7-10 Last Admin: 07/23/18 05:06 Dose: 100 mg
[2018-07-23] MEDS: Acetaminophen 500 MG TAB PO SCH ×3 (11:37→23:51)
[2018-07-23] MEDS: Ibuprofen 600 MG TAB PO SCH ×2 (13:22→21:32)
--- NOTE | 2018-07-23 13:33 | PRG ---
DATE OF SERVICE: 07/23/2018 SUBJECTIVE: Mr. Montiel has a better pain control today. He is ambulating. He is passing liquidy sto ols. He is tolerating his full liquid diet. OBJECTIVE: VITAL SIGNS: Temperature 98.6, pulse 85, blood pressure 114/68. GENERAL: He is in no acute distress. He is alert and oriented x3. LUNGS: Clear to auscultation bilaterally. HEART: Regular rate and rhythm without murmur. ABDOMEN: Soft. Mild tenderness without guarding. Bowel sounds are present. EXTREMITIES: No lower extremity edema. IMPRESSION: 1. Sigmoid colon mass causing intussusception. Colon cancer, suspected; however, this could be a be nign inflammatory ulcerative mass from the intussusception. Pathology is pending. If cancer is conf irmed, then the next step is Oncology consultation to evaluate for the next step in treatment based o n stage. 2. He will need to undergo followup colonoscopy in one year. 3. Post-surgical care per General Surgery. I will sign off for now. Please call if GI can help. 4. It is noted that he has had urinary retention and he has a Brunson catheter in place and follow up planned with Urology.
--- NOTE | 2018-07-23 19:56 | PRG-2 ---
DATE OF SERVICE: 07/23/2018 SUBJECTIVE: Elvis Montiel is a 63-year-old male who is status post left colectomy with primary anast omosis postop day 2. The patient was seen and evaluated by Urology yesterday and found to have evide nce of prostatitis. His Brunson catheter was replaced overnight. Upon our evaluation this morning, th e patient vocalized no complaint. He has been ambulating. He reports flatus and bowel movement. OBJECTIVE: VITAL SIGNS: Temperature 98.6, pulse 85, respirations 16, O2 sat 94% on room air, blood pressure 114 /68. GENERAL: Resting in bed, in no acute distress. PULMONARY: Normal work of breathing. Symmetric rise. CARDIOVASCULAR: Regular rate and rhythm. GASTROINTESTINAL: Abdomen is soft, generalized mild appropriate tenderness. Surgical sites are latesha n, dry and intact. NEUROLOGIC: No focal deficit is noted. ASSESSMENT: Postoperative day 2 status post left colectomy and primary anastomosis with Dr. Bautista. PLAN: Advance diet to full liquid. Per recommendations by Urology, the patient's Brunson should remai n in place upon discharge. Continue to encourage incentive spirometry and pulmonary toileting. Cont inue pain regimen as ordered. Continue for DT prophylaxis. Plan of care was discussed with th e patient and family at bedside and all questions were answered at the time of this dictation. The p nakul was seen and evaluated with Dr. Parker.
[2018-07-23] MEDS: Atorvastatin Calcium 10 MG TAB PO SCH (20:16)
[2018-07-23] MEDS: Enoxaparin Sodium 40 MG/0.4 ML SYRINGE SC SCH (20:17)
[2018-07-24] MEDS ORDERED: Acetaminophen 500 MG TAB PO PRN (04:00)
[2018-07-24] MEDS: Acetaminophen 500 MG TAB PO SCH ×4 (06:17→23:44)
[2018-07-24] MEDS: Ibuprofen 600 MG TAB PO SCH ×3 (06:18→21:51)
[2018-07-24] MEDS: HumaLOG 300 UNITS/3 ML VIAL SC PRN ×4 (06:18→21:14)
[2018-07-24] MEDS: Cipro 250 MG TAB PO SCH ×2 (06:18→20:54)
[2018-07-24] MEDS: Tamsulosin HCl 0.4 MG CAP PO SCH ×2 (08:22→20:55)
[2018-07-24] MEDS: Oxazepam 10 MG CAP PO SCH ×3 (08:22→20:55)
[2018-07-24] MEDS: Finasteride 5 MG TAB PO SCH (08:22)
[2018-07-24] MEDS: Carvedilol 6.25 MG TAB PO SCH ×2 (08:22→18:20)
[2018-07-24] MEDS: Folic Acid 1 MG TAB PO SCH (08:22)
[2018-07-24] MEDS: traMADol HCl 50 MG TAB PO PRN ×2 (08:23→14:34)
[2018-07-24] MEDS: Insulin Glargine 20 UNITS in Pre-Filled Syringe 1 EACH SC SCH ×2 (08:48→20:56)
--- NOTE | 2018-07-24 10:35 | PDOC.PN ---
- Subjective Encounter Start Date: 07/24/18 Encounter Start Time: 10:30 Subjective: no abd pain now or nausea -: is passing stool and flatus -: ambulating in room - Objective Resuscitation Status: Resuscitation Status FULL:Full Resuscitation MAR Reviewed: Yes Vital Signs & Weight: Vital Signs (12 hours) Temp Pulse Resp BP BP Pulse Ox 07/24/18 08:23 96 07/24/18 08:22 158/80 H 07/24/18 07:39 97.8 F 80 16 158/80 H 96 07/24/18 00:18 98.4 F 79 16 135/71 93 L Weight Weight 144 lb 1 oz I&O: 07/23/18 07/24/18 07/25/18 06:59 06:59 06:59 Intake Total 800 Output Total 1100 3875 Balance -300 -3964 Result Diagrams: 07/22/18 04:38 07/22/18 04:38 Additional Labs: Accuchecks 07/24/18 07/23/18 07/23/18 06:06 23:51 17:48 POC Glucose 184 H 287 H 220 H 07/23/18 12:24 POC Glucose 402 H Phys Exam - Physical Examination HEENT: PERRLA, moist MMs Neck: no JVD, supple Respiratory: no wheezing, no rales Cardiovascular: RRR, no significant murmur Gastrointestinal: soft, no distention, positive bowel sounds hutchison+ Musculoskeletal: no edema, pulses present Neurological: non-focal, moves all 4 limbs Psychiatric: normal affect, A&O x 3 Dx/Plan (1) Rectal mass Code(s): K62.9 - DISEASE OF ANUS AND RECTUM, UNSPECIFIED Status: Acute Comment: s/p low ant resection (2) Urinary retention Code(s): R33.9 - RETENTION OF URINE, UNSPECIFIED Status: Acute Comment: in hutchison (3) Anemia Code(s): D64.9 - ANEMIA, UNSPECIFIED Status: Acute Qualifiers: Anemia type: iron deficiency (4) GI bleed Code(s): K92.2 - GASTROINTESTINAL HEMORRHAGE, UNSPECIFIED Status: Acute Qualifiers: GI bleed type/associated pathology: anorectal hemorrhage Qualified Code(s) : K62.5 - Hemorrhage of anus and rectum - Plan await histopath -: bowel function has resumed, pt tolerating solid diet -: dc plan per gen surgery adv -: will have voiding trial in 2-3 weeks in 's office -: continue coreg, ciprp, flomax, proscar and oxazepam for alc abuse * . Review of Systems - Medications/Allergies Allergies/Adverse Reactions: Allergies Allergy/AdvReac Type Severity Reaction Status Date / Time No Known Drug Allergies Allergy Verified 07/19/18 23:59 Medications: Current Medications Acetaminophen (Tylenol) 1,000 mg PO Q6HR COUNT INCLUDES THE [facility] Last Admin: 07/24/18 06:17 Dose: 1,000 mg Atorvastatin Calcium (Lipitor) 10 mg PO HS COUNT INCLUDES THE [facility] Last Admin: 07/23/18 20:16 Dose: 10 mg Carvedilol (Coreg) 12.5 mg PO BID-WM COUNT INCLUDES THE [facility] Last Admin: 07/24/18 08:22 Dose: 12.5 mg Ciprofloxacin (Cipro) 500 mg PO BID@0600,2000 COUNT INCLUDES THE [facility] Last Admin: 07/24/18 06:18 Dose: 500 mg Dextrose/Water (Dextrose 50%) 25 gm SLOW IVP PRN PRN PRN Reason: Hypoglycemia Enoxaparin Sodium (Lovenox) 40 mg SC 2100 COUNT INCLUDES THE [facility] Last Admin: 07/23/18 20:17 Dose: 40 mg Finasteride (Proscar) 5 mg PO DAILY COUNT INCLUDES THE [facility] Last Admin: 07/24/18 08:22 Dose: 5 mg Folic Acid (Folvite) 1 mg PO DAILY COUNT INCLUDES THE [facility] Last Admin: 07/24/18 08:22 Dose: 1 mg Glucagon (Glucagon) 1 mg IM PRN PRN PRN Reason: Hypoglycemia Dextrose/Water (D5w) 1,000 mls @ 0 mls/hr IV .Q0M PRN PRN Reason: Hypoglycemia Insulin Glargine 20 units/ (Miscellaneous Medication) 0.2 mls @ 0 mls/hr SC BID COUNT INCLUDES THE [facility] Last Admin: 07/24/18 08:48 Dose: 0.2 mls Ibuprofen (Motrin) 600 mg PO Q8HR COUNT INCLUDES THE [facility] Last Admin: 07/24/18 06:18 Dose: 600 mg Insulin Human Lispro (Humalog) 0 units SC .MILD SLIDING SCALE PRN PRN Reason: Mild Correctional Scale Last Admin: 07/24/18 06:18 Dose: 2 unit Insulin Human Lispro (Humalog) 0 units SC .BEDTIME SLIDING SC PRN PRN Reason: Bedtime Correctional Scale Last Admin: 07/23/18 23:52 Dose: 3 unit Ondansetron HCl (Zofran) 4 mg IVP Q6H PRN PRN Reason: Nausea/Vomiting Oxazepam (Serax) 10 mg PO TID COUNT INCLUDES THE [facility] Last Admin: 07/24/18 08:22 Dose: 10 mg Dapagliflozin/Metformin Hcl [ Xigduo Xr] 1 Tablet 0 each PO DAILY COUNT INCLUDES THE [facility] Tamsulosin HCl (Flomax) 0.4 mg PO BID COUNT INCLUDES THE [facility] Last Admin: 07/24/18 08:22 Dose: 0.4 mg Thiamine HCl (Thiamine) 100 mg PO DAILY COUNT INCLUDES THE [facility] Last Admin: 07/24/18 08:22 Dose: 100 mg Tramadol HCl (Ultram) 50 mg PO Q6H PRN PRN Reason: PAIN SCALE 4-6 Tramadol HCl (Ultram) 100 mg PO Q6H PRN PRN Reason: PAIN SCALE 7-10 Last Admin: 07/24/18 08:23 Dose: 100 mg
--- NOTE | 2018-07-24 15:08 | PRG ---
DATE OF SERVICE: 07/24/2018 SUBJECTIVE: Mr. Montiel is doing well 3 days after laparoscopic initiated completed open sigmoid colec brit for tumor intussusception. He is doing well, tolerating his diet. He denies experiencing nause a or vomiting. OBJECTIVE: VITAL SIGNS: Temperature 97.4, pulse 78, blood pressure 172/89. LUNGS: Clear to auscultation. CARDIAC: Regular rate and rhythm without murmur or gallop. ABDOMEN: Soft, nondistended. Postoperative tenderness. Midline wound looks good. LABORATORY DATA: White count is 9.1, hemoglobin 8.0 on 07/22/2018, two days ago. Labs have not been rechecked. Accu-Cheks are acceptable at 180-287. Hemoglobin A1c postoperatively is 8.7. Pathology is pending. ASSESSMENT AND PLAN: The patient is doing well. I would advance his diet. Saline lock him. Teressa pascal possible discharge tomorrow. We will leave his Brunson catheter in place for urinary retention an d Dr. Boyer will follow him for that. Dr. Boyer wanted him on Cipro 500 b.i.d. for the next few days , which he is on. Anticipate discharge home tomorrow if he is doing well.
[2018-07-24] MEDS: Ferrous Sulfate 325 MG TAB PO SCH (18:21)
[2018-07-24] MEDS: Enoxaparin Sodium 40 MG/0.4 ML SYRINGE SC SCH (20:55)
[2018-07-24] MEDS: Atorvastatin Calcium 10 MG TAB PO SCH (20:55)
[2018-07-25] MEDS: Ibuprofen 600 MG TAB PO SCH (05:20)
[2018-07-25] MEDS: Cipro 250 MG TAB PO SCH (05:20)
[2018-07-25] MEDS: Acetaminophen 500 MG TAB PO SCH ×2 (05:21→11:41)
[2018-07-25] MEDS: Finasteride 5 MG TAB PO SCH (08:13)
[2018-07-25] MEDS: Tamsulosin HCl 0.4 MG CAP PO SCH (08:14)
[2018-07-25] MEDS: Oxazepam 10 MG CAP PO SCH (08:14)
[2018-07-25] MEDS: Folic Acid 1 MG TAB PO SCH (08:14)
[2018-07-25] MEDS: Ferrous Sulfate 325 MG TAB PO SCH (08:14)
[2018-07-25] MEDS: Carvedilol 6.25 MG TAB PO SCH (08:14)
[2018-07-25] MEDS: Insulin Glargine 20 UNITS in Pre-Filled Syringe 1 EACH SC SCH (09:18)
--- NOTE | 2018-07-25 10:30 | PRG ---
DATE OF SERVICE: 07/25/2018 Mr. Montiel is doing well today. He is tolerating his diet. He is not having nausea or vomiting. He is having bowel movements and passing flatus. PHYSICAL EXAMINATION: LUNGS: Clear to auscultation. CARDIAC: Regular rate and rhythm without murmur or gallop. ABDOMEN: Soft, nontender. : Brunson catheter in place, to be left in place and discharged home with that per Dr. Boyer. Follow up with Dr. Boyer in 2-3 weeks for removal due to urinary retention. Prescriptions have been written by Dr. Boyer for him to go home on finasteride, Flomax, and Cipro 500 p.o. b.i.d. for 10 days . The patient's biopsy for endoscopic returned invasive adenocarcinoma. Final pathology from his surgi tank resection is pending. Plan at this time for discharge home with a Brunson catheter. I have arrang ed a follow up with Dr. Silverio, Oncology, 07/31/2018 at 1:00 and with ak 08/01/2018 at 10 o'cl ock. No lifting over 20 pounds. Diet as tolerated, encourage ambulation. May shower any time.
[2018-07-25 12:11] VITALS: BP 158/85; TEMP 98.3
== END 2018-07-25 12:16 | disposition home or self-care (01) | DRG 330 ==
LOC: ERS 20:00 → SURG B 22:36
PROVIDERS: ADMIT Internal Medicine; ATTEND Internal Medicine
PROC: 0DBP8ZX Excision of Rectum, Via Natural or Artificial Opening Endoscopic, Diagnostic (ICD-10-PCS; 2018-07-20)
PROC: 0DBN0ZZ Excision of Sigmoid Colon, Open Approach (ICD-10-PCS; principal; 2018-07-21)
PROC: 0DBP0ZZ Excision of Rectum, Open Approach (ICD-10-PCS; 2018-07-21)
PROC: 0DSN0ZZ Reposition Sigmoid Colon, Open Approach (ICD-10-PCS; 2018-07-21)
DX: C20 Malignant neoplasm of rectum (principal); K62.5 Hemorrhage of anus and rectum; K56.1 Intussusception; I10 Essential (primary) hypertension; E11.9 Type 2 diabetes mellitus without complications; E78.5 Hyperlipidemia, unspecified; F41.9 Anxiety disorder, unspecified; F32.9 Major depressive disorder, single episode, unspecified; Z53.31 Laparoscopic surgical procedure converted to open procedure; R33.9 Retention of urine, unspecified; D50.9 Iron deficiency anemia, unspecified; F10.10 Alcohol abuse, uncomplicated; N41.9 Inflammatory disease of prostate, unspecified; Z79.4 Long term (current) use of insulin; Z82.49 Family history of ischemic heart disease and other diseases of the circulatory system
CPT/HCPCS: 36415; 36416; 71046; 74177; 80048; 80053; 80307; 82274; 82378; 82553; 82728; 83036; 83540; 83550; 84484; 85025; 85610; 85730; 86850; 86900; 86901; 87086; 88305; 88309; 93005; 93010; 96361; 96374; 96375; C9113; G0103; J0131; J1100; J1650; J1885; J2001; J2185; J2250; J2270; J2405; J2704; J3010; J7050

== ENCOUNTER 2018-08-08 08:20 | Outpatient (CLI) | payer OTHER ==
[2018-08-08] MEDS ORDERED: ISOVUE-370 76%-LOCM 1 ML ONE (12:00)
--- NOTE | 2018-08-08 12:26 | CT ---
CHEST CT WITH CONTRAST: HISTORY: Sigmoid colon cancer. Staging. COMPARISON: None. CORRELATION: Abdomen and pelvis CT from 07/19/2018. FINDINGS: No mediastinal mass, lymphadenopathy, or hematoma. Heart size is within normal limits. No pericardi al effusion. The thoracic aorta and visualized abdominal aorta have a normal caliber. Of note, the ascending thoracic aorta measures 4 x 4 cm, which is at the upper limits of normal. The visualized c entral pulmonary arterial system has appropriate contrast enhancement. No filling defect to suggest thromboembolism. The visualized upper solid organs are unremarkable. The trachea and central bronchi are patent. No masses or consolidation. No nodules. No pleural eff usion or pneumothorax. No osseous abnormalities. IMPRESSION: No CT evidence of metastases within the chest. POS: OJ
== END 2018-08-08 08:21 | disposition home or self-care (01) ==
LOC: BICCT 08:20
PROVIDERS: ATTEND Internal Medicine Hematology & Oncology
DX: C18.7 Malignant neoplasm of sigmoid colon (principal)
CPT/HCPCS: 71260

== ENCOUNTER 2019-02-15 10:13 | Outpatient (CLI) | payer OTHER ==
--- NOTE | 2019-02-15 11:12 | CT ---
Exam: Chest CT with contrast Abdomen CT with contrast Pelvic CT with contrast: HISTORY: Cancer of the sigmoid colon. Previous removal of tumor. Patient has not undergone chemotherapy or rad iation therapy. CORRELATION: None. COMPARISON: 08/08/2018. FINDINGS: Chest CT: Mediastinum: No mass, lymphadenopathy or hematoma. Aorta: Stable upper normal diameter of the ascending thoracic aorta measuring 4.0 x 4.0 cm. No eviden ce of dissection or periaortic fat stranding. Heart: Normal size. No pericardial effusion. There are coronary artery calcifications Trachea and central bronchi: Patent Pleural spaces: Right lung: Minimal dependent atelectatic changes. No suspicious mass or consolidation. Left lung:Minimal dependent atelectatic changes. No suspicious mass or consolidation. Pneumothorax: None Abdomen CT: Gallbladder: Unremarkable Portal vein: Patent Liver: Stable 0.6 x 0.6 cm hypodensity in the right hepatic lobe. No enhancing masses. Spleen: Appropriate enhancement Pancreas: Appropriate enhancement Adrenal glands: Appropriate enhancement Lymphadenopathy: No gastrohepatic, retrocrural or periportal lymphadenopathy Kidneys: Symmetric enhancement. No obstructive uropathy. Mesentery: No mass, lymphadenopathy, free air or free fluid Alimentary canal: Gastric mucosa duodenum and multiple normal caliber small bowel loops are identifie d. Ileocecal junction is normal. Normal caliber appendix. Scattered fecal material and contrast in a nondistended, nondilated colon. Suture chain is noted in the sigmoid colon. No evidence of adjacent inflammatory change or lymphadenopathy. Pelvis CT: No pelvic mass, lymphadenopathy, free air or free fluid. Urinary bladder is unremarkable. Osseous structures:No lytic or blastic lesions. IMPRESSION: 1. No evidence of a lung parenchymal mass or suspicious nodule. 2. Stable subcentimeter hypodensity in the right hepatic lobe. No enhancing masses in the liver. 3. No evidence of bowel obstruction. Suture chain with anastomosis of the sigmoid colon is noted. No evidence of pericolonic inflammatory change or lymphadenopathy. Transcribed Date/Time: 02/15/2019 11:53 AM
== END 2019-02-15 10:14 | disposition home or self-care (01) ==
LOC: BICCT 10:13
PROVIDERS: ATTEND Internal Medicine Hematology & Oncology
DX: C18.7 Malignant neoplasm of sigmoid colon (principal); K76.89 Other specified diseases of liver
CPT/HCPCS: 71260; 74177

== ENCOUNTER 2020-01-22 08:39 | Outpatient (CLI) | payer OTHER ==
[2020-01-22 09:11] LABS: Estimated GFR-MDRD - POC Greater than 90
[2020-01-22] MEDS ORDERED: Iopamidol-370 76% 500 ML 1 ML ONE (09:19)
--- NOTE | 2020-01-22 09:34 | CT ---
EXAM: CT chest, abdomen, and pelvis with IV contrast: HISTORY: Colon cancer. COMPARISON: 02/15/2019 FINDINGS: CT THORAX: Lungs: No consolidation, suspicious pulmonary nodule, or mass. Pleura: No pleural effusion. Lymph nodes: No lymphadenopathy. Mediastinum: Minimal vascular calcifications in the coronary arteries and thoracic aorta. Chest wall: No abnormalities CT ABDOMEN AND PELVIS: Liver: Stable approximately 7 mm hypodense lesion lateral aspect right hepatic lobe. No additional he patic lesions are seen. Gallbladder: Within normal limits. \ Pancreas: Within normal limits. Spleen: Within normal limits. Adrenal glands: Within normal limits. Kidneys: Within normal limits. Urinary Bladder: Distended but otherwise normal in appearance. Reproductive organs: Within normal limits for patient's age. Bowel: Suture material related to anastomosis in the region of the sigmoid colon is present. Moderate amount retained fecal material seen throughout the colon greater in the region of the rectum. Loops of small bowel are normal in caliber. Adenopathy:No lymphadenopathy within the abdomen or pelvis. Peritoneum: No free fluid or fluid collection is seen. No free intraperitoneal gas is identified. Abdominal wall: No abnormalities seen. Scrotum: There is evidence of a right-sided hydrocele with probable small left hydrocele. Scrotum is incompletely imaged on this exam. Osseous structures: Degenerative changes are seen in the spine. No suspicious lytic or sclerotic osse ous lesions are identified. IMPRESSION: 1. Stable subcentimeter hypodense lesion right hepatic lobe which is too small to further characteriz e. 2. No evidence of a pulmonary nodule, and no lymphadenopathy is present in the chest, abdomen, or pel vis. 3. Postoperative changes of the sigmoid colon with anastomotic sutures present. Moderate amount of re tained fecal material seen throughout the colon suggesting constipation.
== END 2020-01-22 08:40 | disposition home or self-care (01) ==
LOC: BICCT 08:39
PROVIDERS: ATTEND Internal Medicine Hematology & Oncology
DX: C18.7 Malignant neoplasm of sigmoid colon (principal); D50.0 Iron deficiency anemia secondary to blood loss (chronic); K76.9 Liver disease, unspecified; K59.00 Constipation, unspecified; Z98.890 Other specified postprocedural states
CPT/HCPCS: 71260; 74177; Q9967

== ENCOUNTER 2020-06-04 13:40 | Outpatient (CLI) | payer OTHER ==
[2020-06-04 14:22] LABS: Estimated GFR-MDRD - POC Greater than 90
--- NOTE | 2020-06-04 15:49 | MRI ---
Exam: Brain MRI with and without contrast HISTORY: Localized related focal/partial epilepsy. Left arm started jerking tingling under left eye l eft ear. COMPARISON: None FINDINGS: Gradient echo sequence: No hemorrhage Calvarium: Appropriate T1 marrow signal intensity Midline brain parenchyma: Unremarkable Cerebrum:No parenchymal mass, mass effect or midline shift. Brain volume, age-appropriate. Cortical g ray-white matter differentiation is preserved. T2 and FLAIR white matter hyperintensities are nonspecific. There is associated restricted diffusion and enhancement involving a T2 hyperintense les ion adjacent to the posterior body of the right lateral ventricle, measuring 0.6 x 0.7 cm. Coronal images do not demonstrate any evidence of mesial temporal sclerosis Ventricles: No evidence of hydrocephalus. Sinuses and mastoid air cells: Adequate aeration Diffusion: Central arterial flow is maintained. Absent restricted diffusion. Postcontrast images:Enhancing focus involving the right. Right matter as described above. No addition al enhancement of the brain parenchyma. Additional findings: There appears to be a T2 hyperintense lesion with peripheral enhancement involvi ng the anterior aspect of the maxilla. Correlate for possible infection/odontogenic abscess IMPRESSION: 1. Solitary enhancing focus involving the right paratracheal white matter. The patient's history of c olon cancer. Correlate for possible intracranial metastases. 2. Odontogenic abscess in the anterior left aspect of the maxilla. Dedicated maxillofacial CT without contrast is recommended Results of study conveyed to Dr. Roger via [employer] connect 06/04/2020 at 3:45 PM Code CR
== END 2020-06-04 13:41 | disposition home or self-care (01) ==
LOC: SCSMRI 13:40
PROVIDERS: ATTEND Psychiatry & Neurology Neurology
DX: G40.209 Localization-related (focal) (partial) symptomatic epilepsy and epileptic syndromes with complex partial seizures, not intractable, without status epilepticus (principal); R90.82 White matter disease, unspecified; M27.2 Inflammatory conditions of jaws
CPT/HCPCS: 70553; 82565

== ENCOUNTER 2020-07-14 11:01 | Outpatient (CLI) | payer MEDICARE, OTHER ==
[2020-07-14 11:38] LABS: Estimated GFR-MDRD - POC Greater than 90
--- NOTE | 2020-07-14 12:54 | MRI ---
MRI BRAIN WITH AND WITHOUT CONTRAST: DATE: 07/14/2020 HISTORY: 65-year-old male follow-up intracranial metastasis COMPARISON: 06/04/2020 TECHNIQUE: Multiplanar, multisequence MRI of the brain performed pre- and post-IV injection of gadolinium based contrast agent. FINDINGS: The previously demonstrated small enhancing intra-axial lesion, with associated small patchy surround ing region of T2 hyperintensity that may represent vasogenic edema in the right parietal deep periventricular white matter abutting the trigone of the right lateral ventricle, has become much sma ller and very faint, such that the current degree of enhancement is minimal, and the associated T2 hyperintensity region is smaller. In the contralateral periventricular white matter abutting the trigone of the left lateral ventricle, there is a new 0.6 x 0.2 cm short linear focus of intra-axial enhancement, associated with subtle, mild T2 hyperintensity.. Located superior and anterior to that, there is what appears to be a small old deep white matter lacu rivera infarction in the left parietal periventricular white matter abutting the trigone of the left lateral ventricle. This is unchanged. No evidence of acute infarction, mass effect, midline shift, recent or remote major intra-axial hemor rhage, or extra-axial fluid collection., IMPRESSION: 1) previously demonstrated small enhancing intra-axial lesion in the right parietal periventricular d eep white matter has involuted significantly, and is currently inconspicuous. It is uncertain whether this represents an actual metastasis or previous subacute infarction. 2) new enhancing lesion in the contralateral left parietal periventricular deep white matter. This co uld be a new metastasis. It is uncertain whether this represents an acute subacute infarction or a new metastasis. 3) there is a definite tiny old left parietal deep white matter lacunar infarction. 4) recommend continued serial follow-up MRIs of the brain with and without contrast, beginning approx imately 6 months.
[2020-07-14 14:16] LABS: #Basophils 0.1 thou/uL (0.0-0.2); #Eosinphils 0.2 thou/uL (0.0-0.7); #Lymphocytes 2.3 thou/uL (1.20-3.40); #Monocytes 0.4 thou/uL (0.11-0.59); #Neutrophils 3.8 thou/uL (1.40-6.50); %Basophils 1.1 % (0.0-1.0); %Eosinophils 2.4 % (0.0-10.0); %Lymphocytes 33.8 % (21.0-51.0); %Monocytes 5.5 % (0.0-10.0); %Neutrophils 57.1 % (42.0-75.0); Hemoglobin 14.2 g/dL (14.0-18.0); Mean Corpuscular Hemoglobin 33.6 pg (27.0-31.0); Mean Corpuscular Volume 93.3 fL (78.0-98.0); Mean Platelet Volume 8.5 fL (7.4-10.4); Platelet Count 190 thou/uL (130-400); RBC Distribution Width 11.5 % (11.5-14.5); Red Blood Cell (RBC) Count 4.22 mill/uL (4.70-6.10); White Blood Cell (WBC) Count 6.7 thou/uL (4.8-10.8)
[2020-07-14 15:25] LABS: ALT (SGPT) 18 U/L (8-55); AST (SGOT) 17 U/L (5-34); Albumin 4.4 g/dL (3.4-4.8); Alkaline Phosphatase 75 U/L (40-110); Anion Gap 18 mmol/L (10-20); BUN (Urea Nitrogen) 20 mg/dL (8.4-25.7); Bilirubin, Total 0.5 mg/dL (0.2-1.2); Calc. Creatinine Clearance 0 mL/min (70-130); Calcium 9.4 mg/dL (7.8-10.44); Carbon Dioxide 25 mmol/L (23-31); Chloride 96 mmol/L (98-107); Estimated GFR-MDRD 67; Globulin 3.2 g/dL (2.4-3.5); Glucose 314 mg/dL (80-115); Potassium 4.3 mmol/L (3.5-5.1); Protein, Total 7.6 g/dL (5.8-8.1); Sodium 135 mmol/L (136-145)
== END 2020-07-14 11:02 | disposition home or self-care (01) ==
LOC: SCSMRI 11:01
PROVIDERS: ATTEND Internal Medicine Medical Oncology
DX: C79.31 Secondary malignant neoplasm of brain (principal); C18.9 Malignant neoplasm of colon, unspecified; G93.9 Disorder of brain, unspecified; I25.2 Old myocardial infarction
CPT/HCPCS: 36415; 70553; 80053; 82378; 82565; 85025

== ENCOUNTER 2020-08-04 10:05 | Inpatient (IN) | payer MEDICARE, OTHER ==
[2020-08-04] MEDS ORDERED: Albuterol 200 PUFF (6.7GM INHALER) ONE (11:37)
[2020-08-04 11:57] LABS: #Eosinphils 0.2 thou/uL (0.0-0.7); #Lymphocytes 1.7 thou/uL (1.20-3.40); #Monocytes 0.6 thou/uL (0.11-0.59); #Neutrophils 9.8 thou/uL (1.40-6.50); %Basophils 0.2 % (0.0-1.0); %Eosinophils 1.5 % (0.0-10.0); %Lymphocytes 13.6 % (21.0-51.0); %Monocytes 4.8 % (0.0-10.0); %Neutrophils 79.9 % (42.0-75.0); Mean Corpuscular HGB CONC 33.9 g/dL (32.0-36.0); Mean Corpuscular Hemoglobin 32.7 pg (27.0-31.0); Mean Corpuscular Volume 96.5 fL (78.0-98.0); Mean Platelet Volume 7.8 fL (7.4-10.4); Platelet Count 326 thou/uL (130-400); RBC Distribution Width 11.5 % (11.5-14.5); Red Blood Cell (RBC) Count 4.89 mill/uL (4.70-6.10); White Blood Cell (WBC) Count 12.2 thou/uL (4.8-10.8)
--- NOTE | 2020-08-04 12:07 | RAD ---
PORTABLE CHEST: Date: 08/04/2020 HISTORY: Dyspnea. FINDINGS: Lungs appear clear and well aerated. No evidence of infiltrate. Heart and mediastinum unremarkable. V ascular markings normal. IMPRESSION: No acute process. POS: AGW
[2020-08-04] MEDS ORDERED: Ondansetron PF 4 MG/2 ML Vial ONE (12:18)
[2020-08-04 12:21] LABS: ALT (SGPT) 12 U/L (8-55); AST (SGOT) 14 U/L (5-34); Albumin 4.5 g/dL (3.4-4.8); Alkaline Phosphatase 112 U/L (40-110); BUN (Urea Nitrogen) 34 mg/dL (8.4-25.7); Bilirubin, Total 0.3 mg/dL (0.2-1.2); Calc. Creatinine Clearance 0 mL/min (70-130); Chloride 101 mmol/L (98-107); Estimated GFR-MDRD 31; Globulin 4.1 g/dL (2.4-3.5); Glucose 401 mg/dL (80-115); Potassium 6.4 mmol/L (3.5-5.1); Protein, Total 8.6 g/dL (5.8-8.1); Sodium 133 mmol/L (136-145)
[2020-08-04] MEDS ORDERED: Iopamidol-370 76% 500 ML 1 ML ONE (12:25)
[2020-08-04 12:43] LABS: Carbon Dioxide Less than 8 mmol/L (23-31)
--- NOTE | 2020-08-04 13:12 | PDOC.HHP ---
Hospitalist HPI - History of Present Illness Generalized weakness/shortness of breath/headache/fever History of Present Illness: Patient is 65-year-old male with diabetes mellitus type 2 noncompliant with in sulin regimen presented to the emergency room with generalized weakness over the past 1 week. He also had some nausea with one episode of vomiting. He felt headed and dizzy and sometimes foggy. No fever or chills reported. There was generalized headache without any double vision blurring of vision or facial asymmetry. He also had shortness of breath on exertionfamily describes as hyperventilation. He has also lost around 20 pounds over the past few months. No chest pain, palpitations, syncope reported he does not monitor his blood sugars on a daily basis. In the emergency room his work-up was consistent with diabetic ketoacidosis and was started on IV fluids with insulin drip. MEDICAL HISTORY : Hypertension, diabetes mellitus type 2, dyslipidemia, stage II invasive adenocarcinoma of rectum, urinary retention requiring Brunson catheter in the past-has seen Dr. Boyer at [facility]. SURGICAL HISTORY: Colonoscopy, colon resection PERSONAL HISTORY: Drinks 2-7 cans of beers daily. Does not abuse drugs. No history of smoking. Lives with his . FAMILY HISTORY: Mother in her 80s from brain aneurysm. Father of massive OR at the age of 60. CODE STATUS: FULL. Power of employment attorney is his . ED Course: MMEDICATION ADMINISTRATION SUMMARY TueAug 04, 2020 19:44 Drug Name Dose Ordered Route Status Time *sodium chloride 0.9 % intravenous 500 mL/hr IV Fluid Infusion Given 16:04 08/04/2020 morphine injection 4 mg IV Push Given 15:34 08/04/2020 sodium bicarbonate intravenous 2 amp(s) IV Push Given 15:29 08/04/2020 NovoLIN R Regular U-100 Insuln 6 units/hr IV Fluid Infusion Given 15:20 08/04/2020 NovoLIN R Regular U-100 Insuln 6 units IV Push Given 15:15 08/04/2020 sodium chloride 0.9 % intravenous 500 mL IV Fluid Infusion Given 14:42 08/04/2020 sodium chloride 0.9 % intravenous 500 mL IV Fluid Infusion Given 14:42 08/04/2020 calcium gluconate intravenous 3 g IV Piggy Back Given 14:41 08/04/2020 cefepime injection 2 g IV Piggy Back Given 13:43 08/04/2020 sodium chloride 0.9 % intravenous 1 L IV Fluid Infusion Given 13:42 08/04/2020 sodium bicarbonate intravenous 1 amp(s) IV Push Given 13:42 08/04/2020 *ondansetron HCl intravenous 4 mg IV Push Given 12:29 08/04/2020 Proventil HFA 4 inhalation Inhaler-MDI Given 11:42 08/04/2020 VITAL SIGNS TueAug 04, 2020 10:07 MARU Lee Lauren BP: 141/68, Pulse: 96, Resp: 24, Pain: 0, O2 sat: 100 on (Room Air), Time: 08/04/2020 10:07. Hospitalist ROS - Review of Systems Constitutional: reports: weakness, malaise Respiratory: denies: cough, dry, shortness of breath, hemoptysis, SOB with excertion, pleuritic pain, sputum, wheezing, other Cardiovascular: denies: chest pain, palpitations, orthopnea, paroxysmal noc. dyspnea, edema, light headedness, other Gastrointestinal: reports: nausea, vomiting. denies: abdominal pain, diarrhea, constipation, melena, hematochezia, other Genitourinary: denies: dysuria, frequency, incontinence, hematuria, retention, other All other systems reviewed; all pertinent +/- noted in HPI/Subj - Medication Medications: Allergies No Known Drug Allergies Allergy (Verified 07/19/18 23:59) Home medication list from last dischargeneeds to be verified Medication Instructions Recorded Confirmed Type Carvedilol [Coreg] 25 mg PO DAILY 07/20/18 07/20/18 History Dapagliflozin/Metformin HCl 1 tablet PO DAILY 07/20/18 07/20/18 History [Xigduo XR] Pravastatin Sodium 40 mg PO DAILY 07/20/18 07/20/18 History Acetaminophen [Tylenol Extra 1,000 mg PO Q6HR tab 07/25/18 Rx Strength] Ciprofloxacin [Cipro] 500 mg PO BID 07/25/18 07/25/18 History Ferrous Sulfate [Feosol] 325 mg PO BID 07/25/18 07/25/18 History Finasteride [Proscar] 5 mg PO HS 07/25/18 07/25/18 History Ibuprofen [Motrin] 600 mg PO Q8HR tab 07/25/18 Rx Tamsulosin HCl 0.4 mg PO BID 07/25/18 07/25/18 History traMADol HCl [Ultram] 50 mg PO Q6H PRN 3 Days #20 tab 07/25/18 Rx - Exam General Appearance: ill appearing Eye: PERRL, anicteric sclera ENT: no oropharyngeal lesions, dry oral mucosa Neck: supple, symmetric, no JVD, no thyromegaly Heart: RRR, no gallops, no rubs, normal peripheral pulses Respiratory: no wheezes, no rales, no ronchi, normal chest expansion Gastrointestinal: soft, non-tender, non-distended, normal bowel sounds, no guarding, no rigidity Extremities: no cyanosis, no clubbing, no edema Skin: no lesions Neurological: cranial nerve grossly intact, normal sensation to touch, no weakness, no focal deficits Musculoskeletal: normal tone, generalized weakness Psychiatric: normal affect, A&O x 3 Hospitalist Results - Labs Result Diagrams: 08/04/20 11:45 08/04/20 15:40 Lab results: WBC 12.2 thou/uL (4.8-10.8) H 08/04/20 11:45 Hgb 16.0 g/dL (14.0-18.0) 08/04/20 11:45 Hct 47.2 % (42.0-52.0) 08/04/20 11:45 MCV 96.5 fL (78.0-98.0) 08/04/20 11:45 Plt Count 326 thou/uL (130-400) 08/04/20 11:45 Neutrophils % 79.9 % (42.0-75.0) H 08/04/20 11:45 Sodium 133 mmol/L (136-145) L 08/04/20 11:45 Potassium 6.4 mmol/L (3.5-5.1) H 08/04/20 11:45 Chloride 101 mmol/L (98-107) 08/04/20 11:45 Carbon Dioxide Less than 8 mmol/L (23-31) L* 08/04/20 11:45 BUN 34 mg/dL (8.4-25.7) H 08/04/20 11:45 Creatinine 2.14 mg/dL (0.7-1.3) H 08/04/20 11:45 Glucose 401 mg/dL (80-115) H 08/04/20 11:45 Calcium 10.0 mg/dL (7.8-10.44) 08/04/20 11:45 Total Bilirubin 0.3 mg/dL (0.2-1.2) 08/04/20 11:45 AST 14 U/L (5-34) 08/04/20 11:45 ALT 12 U/L (8-55) 08/04/20 11:45 Alkaline Phosphatase 112 U/L (40-110) H 08/04/20 11:45 Troponin I Less than 0.010 ng/mL (< 0.028) 08/04/20 11:45 Serum Total Protein 8.6 g/dL (5.8-8.1) H 08/04/20 11:45 Albumin 4.5 g/dL (3.4-4.8) 08/04/20 11:45 Laboratory Tests 04/18/20 07/14/20 13:19 11:45 Creatinine 1.10 1.10 Abnormal Lab Results - Last 48 hrs 08/04/20 11:26: B-Hydroxybutyrate 13.36 H 08/04/20 11:45: Sodium 133 L, Potassium 6.4 H, Carbon Dioxide Less than 8 L*, BUN 34 H, Creatinine 2.14 H, Alkaline Phosphatase 112 H, Serum Total Protein 8.6 H, Globulin 4.1 H, Albumin/Globulin Ratio 1.1 L 08/04/20 11:45: WBC 12.2 H, MCH 32.7 H, Neutrophils % 79.9 H, Lymphocytes % 13.6 L, Neutrophils # 9.8 H, Monocytes # 0.6 H 08/04/20 11:45: D-Dimer 0.97 H 08/04/20 13:22: Phosphorus 6.6 H 08/04/20 13:22: Hemoglobin A1c 11.7 H 08/04/20 13:22: C-Reactive Protein 7.29 H 08/04/20 14:02: VBG pH 6.91 L*, VBG pCO2 13.9 L*, VBG pO2 110.3 H, VBG HCO3 3 L*, VBG O2 Sat (Hermelinda) 97.3 H, VBG Base Excess -28.8 L, Whole Bld Potassium 6.12 H 08/04/20 15:40: Potassium 5.3 H, Carbon Dioxide Less than 8 L*, BUN 38 H, Creatinine 1.72 H 08/04/20 15:40: Serum Osmolality 337 H* 08/04/20 15:40: Urine Protein 50 A, Urine Glucose (UA) Greater than 1000 A, Urine Ketones Greater than 150 A, Urine Blood Trace A, Hyaline Casts 4-6 A - EKG Interpretation EKG: Sinus rhythm with nonspecific ST-T wave changesreviewed by me - Radiology Interpretation Chest x-ray Status: image reviewed by me Additional Comment: FINDINGS: Lungs appear clear and well aerated. No evidence of infiltrate. Heart and mediastinum unremarkable. V ascular markings normal. IMPRESSION: No acute process. CT scan - chest Status: image reviewed by me Additional Comment: CT PULMONARY ANGIOGRAM WITH IV CONTRAST AND 3D POST PROCESSING: HISTORY: Elevated D-dimer. Chest pain. Shortness of breath. FINDINGS: No filling defects noted in the pulmonary arterial vasculature to suggest pulmonary embolism. The thoracic aorta is well opacified without evidence of aneurysm or dissection. No pleural or pericardial effusions are seen. No pneumothoraces, focal areas of consolidation, lung nodules, or masses are seen. There are degenerative changes I the spine. Upper abdominal tomograms demonstrate a stable 7 mm low-density lesion in the lateral aspect of the right hepatic lobe since 01/22/2020. IMPRESSION: No CT evidence of pulmonary embolism. CT scan - abdomen Status: image reviewed by me Additional Comment: CT abdomen and pelvis with IV contrast HISTORY: Abdominal pain. Nausea vomiting. FINDINGS: The lung bases are clear. Circumferential wall thickening involves the partially visualized lower esophagus. Stomach is distended with gas and fluid. A 0.5 cm cyst within the lateral dome of the right liver lobe is stable. Mild distention of the renal collecting systems and ureters favored to be related to severe distention of the urinary bladder that measures up to 18.6 cm length. Postoperative changes at the rectosigmoid junction. No evidence of complication. No evidence of bowel obstruction. IMPRESSION : Circumferential wall thickening of the partially visualized lower esophagus. Correlate for esophagitis. Severe distention of the urinary bladder. Correlate for bladder outlet obstruction. No findings of mass or inflammation. No evidence of bowel obstruction or inflammation. Hospitalist H&P A/P - Plan Plan: Severe diabetic ketoacidosis causing generalized weakness Metabolic acidosis due to above Hyponatremia Hyperkalemia due to acidosis Severe dehydration with osmolality of 337 SHERRY on CKD stage II Uncontrolled diabetes mellitus type 2 with A1c of 11.7 Urinary retention on CTasymptomatic Esophagitis on CT Hypertension Dyslipidemia History of rectal cancer Plan: Patient will be monitored in the IMCU. He received sodium bicarbonate in the emergency room. We will start him on insulin drip along with IV fluids. Monitor basic metabolic profile every 4 hourly. Recheck osmolality and ketones in a.m. Troponins negative. IV PPIs for esophagitis. A Brunson catheter will be placed. DVT prophylaxis with Lovenox. Consult dietitian for education. Clear liquid diet. Plan discussed with daughter at the bedside. Patient will r equire 2 to 3 days for stabilization
[2020-08-04] MEDS ORDERED: Sodium Bicarb 50 MEQ/50 ML VIAL ONE (13:19)
[2020-08-04] MEDS ORDERED: Cefepime 2 GM VIAL ONE (13:23)
[2020-08-04] MEDS ORDERED: Calcium Gluc 4.6 MEQ/10 ML (100 MG/ML) ONE (13:23)
[2020-08-04] MEDS ORDERED: NS 0.9% w/ 20 MEQ KCL 1,000 ML IV PRN ×2 (13:50)
[2020-08-04] MEDS ORDERED: Sodium Chloride 0.9% 1,000 ML IV PRN ×4 (13:50)
[2020-08-04] MEDS ORDERED: Electrolyte Replacement Protoc 1 EACH EACH IVPB PRN (13:50)
[2020-08-04] MEDS ORDERED: Dextrose 5 %-0.45 % NaCl 1,000 ML IV PRN (13:50)
--- NOTE | 2020-08-04 13:55 | CT ---
CT PULMONARY ANGIOGRAM WITH IV CONTRAST AND 3D POST PROCESSING: HISTORY: Elevated D-dimer. Chest pain. Shortness of breath. FINDINGS: No filling defects noted in the pulmonary arterial vasculature to suggest pulmonary embolism. The th oracic aorta is well opacified without evidence of aneurysm or dissection. No pleural or pericardial effusions are seen. No pneumothoraces, focal areas of consolidation, lung nodules, or masses are seen. There are degener ative changes I the spine. Upper abdominal tomograms demonstrate a stable 7 mm low-density lesion in the lateral aspect of the right hepatic lobe since 01/22/2020. IMPRESSION: No CT evidence of pulmonary embolism. POS: OJ
[2020-08-04 13:56] LABS: Hemoglobin A1c 11.7 % (4.0-6.0)
--- NOTE | 2020-08-04 13:57 | CT ---
CT abdomen and pelvis with IV contrast HISTORY: Abdominal pain. Nausea vomiting. FINDINGS: The lung bases are clear. Circumferential wall thickening involves the partially visualized lower esophagus. Stomach is distended with gas and fluid. A 0.5 cm cyst within the lateral dome of the right liver lobe is stable. Mild distention of the renal collecting systems and ureters favored to be related to severe distentio n of the urinary bladder that measures up to 18.6 cm length. Postoperative changes at the rectosigmoid junction. No evidence of complication. No evidence of bowel obstruction. IMPRESSION : Circumferential wall thickening of the partially visualized lower esophagus. Correlate for esophagiti s. Severe distention of the urinary bladder. Correlate for bladder outlet obstruction. No findings of ma ss or inflammation. No evidence of bowel obstruction or inflammation.
[2020-08-04 14:00] LABS: Magnesium 2.4 mg/dL (1.6-2.6); Phosphorus 6.6 mg/dL (2.3-4.7)
[2020-08-04] MEDS ORDERED: HUMULIN R 100 UNITS in Sodium Chloride 0.9% 100 ML IVPB SCH (14:00)
[2020-08-04 14:08] LABS: Analyzer IN Cardio ER; Base Excess -28.8 mEq/L (-2.0 to +3.0); Calcium, Ionized (venous) 1.31 mmol/L (1.16-1.32); Chloride (VBG) 101 mmol/L (98-106); Hemoglobin (Hb) 15.2 g/dL (12.6-17.4); Potassium (VBG) 6.12 mmol/L (3.70-5.30); Sodium 133.8 mmol/L (133-146)
[2020-08-04 14:10] LABS: pH (venous) 6.91 (7.32-7.43)
[2020-08-04 14:11] LABS: Actual Bicarbonate (HCO3v) 3 mEq/L (22-28)
[2020-08-04] MEDS ORDERED: Sodium Bicarb 50 MEQ/50 ML Abboject 8.4% SYRINGE ONE (14:49)
[2020-08-04] MEDS ORDERED: INSULIN REGULAR IN 0.9 % NACL 100 UNIT/100 ML BAG ONE ×2 (14:49→14:51)
[2020-08-04] MEDS ORDERED: Morphine 4 MG/ML VIAL ONE (14:49)
[2020-08-04] MEDS ORDERED: Insulin Regular 300 UNITS/3 ML VIAL ONE (14:54)
[2020-08-04 16:05] LABS: Bacteria/HPF None Seen HPF (None Seen); Bilirubin Negative (Negative); Blood, Urine Trace (Negative); Clarity Clear (Clear); Glucose, Urine (Dipstick) Greater than 1000 mg/dL (Negative); Ketone, Urine Greater than 150 mg/dL (Negative); Leukocyte Negative Leu/uL (Negative); Nitrite Negative (Negative); Protein, Urine (Dipstick) 50 mg/dL (Neg-Trace); RBC/HPF 0-3 HPF (0-3); Specific Gravity, Urine 1.024 (1.002-1.036); Squamous Epithelial None Seen HPF (0-3); Urobilinogen Normal mg/dL (Less than 2); WBC/HPF 0-3 HPF (0-3); pH, Urine 5.5 (5.0-9.0)
[2020-08-04 16:11] LABS: Troponin I Less than 0.010 ng/mL (< 0.028)
[2020-08-04 16:12] LABS: BUN (Urea Nitrogen) 38 mg/dL (8.4-25.7); Calc. Creatinine Clearance 0 mL/min (70-130); Calcium 9.4 mg/dL (7.8-10.44); Carbon Dioxide Less than 8 mmol/L (23-31); Chloride 107 mmol/L (98-107); Estimated GFR-MDRD 40; Glucose 322 mg/dL (80-115); Potassium 5.3 mmol/L (3.5-5.1); Sodium 139 mmol/L (136-145)
[2020-08-04] MEDS ORDERED: Sodium Bicarbonate 100 MEQ in Sodium Chloride 0.45% 1,000 ML IV SCH (17:00)
[2020-08-04 17:07] LABS: SARS-CoV-2 MS2 Positive; SARS-CoV-2 N Gene Negative; SARS-CoV-2 S Gene Negative; SARS-CoV-2 by NAA Not Detected (NotDetected); SARS-CoV-2 orf1ab Negative
[2020-08-04] MEDS ORDERED: Ondansetron ODT 4 MG TAB PO PRN (18:19)
[2020-08-04] MEDS ORDERED: Acetaminophen 325 MG TAB PO PRN (18:19)
[2020-08-04] MEDS ORDERED: Ondansetron PF 4 MG/2 ML Vial IVP PRN (18:19)
[2020-08-04 18:38] VITALS: BMI 22.1
[2020-08-04] MEDS: Pantoprazole 40 MG VIAL IVP SCH (19:29)
[2020-08-04] MEDS: cefTRIAXone\\ROCEPHIN 1 GM in Sodium Chloride 0.9% 100 ML IVPB SCH (19:30)
[2020-08-04] MEDS: Senokot S 8.6-50 MG TAB PO SCH (19:30)
[2020-08-04 20:31] LABS: Anion Gap 25 mmol/L (10-20); BUN (Urea Nitrogen) 31 mg/dL (8.4-25.7); Calc. Creatinine Clearance 45 mL/min (70-130); Calcium 8.5 mg/dL (7.8-10.44); Chloride 109 mmol/L (98-107); Estimated GFR-MDRD 48; Glucose 164 mg/dL (80-115); Potassium 3.7 mmol/L (3.5-5.1); Sodium 138 mmol/L (136-145)
[2020-08-04 20:34] LABS: Carbon Dioxide 8 mmol/L (23-31); Troponin I Less than 0.010 ng/mL (< 0.028)
[2020-08-04] MEDS ORDERED: Sodium Bicarbonate Tab 325 MG TAB PO SCH (21:00)
[2020-08-04] MEDS: D5 1/2 NS w/20 mEq KCL 1,000 ML IV PRN (21:41)
[2020-08-04 22:19] LABS: Bacteria/HPF None Seen HPF (None Seen); Bilirubin Negative (Negative); Blood, Urine Trace (Negative); Clarity Clear (Clear); Glucose, Urine (Dipstick) Greater than 1000 mg/dL (Negative); Ketone, Urine Greater than 150 mg/dL (Negative); Leukocyte Negative Leu/uL (Negative); Nitrite Negative (Negative); Protein, Urine (Dipstick) 30 mg/dL (Neg-Trace); RBC/HPF 0-3 HPF (0-3); Specific Gravity, Urine 1.022 (1.002-1.036); Squamous Epithelial 0-3 HPF (0-3); Urobilinogen Normal mg/dL (Less than 2); WBC/HPF 0-3 HPF (0-3); pH, Urine 5.5 (5.0-9.0)
[2020-08-04 22:21] LABS: Urine Culture Reflex No No
[2020-08-05 00:18] LABS: Anion Gap 18 mmol/L (10-20); BUN (Urea Nitrogen) 25 mg/dL (8.4-25.7); Calc. Creatinine Clearance 48 mL/min (70-130); Calcium 8.1 mg/dL (7.8-10.44); Carbon Dioxide 13 mmol/L (23-31); Chloride 110 mmol/L (98-107); Estimated GFR-MDRD 51; Glucose 212 mg/dL (80-115); Potassium 3.5 mmol/L (3.5-5.1); Sodium 137 mmol/L (136-145)
[2020-08-05] MEDS: D5 1/2 NS w/20 mEq KCL 1,000 ML IV PRN ×3 (01:28→09:37)
[2020-08-05 04:40] LABS: Anion Gap 13 mmol/L (10-20); BUN (Urea Nitrogen) 19 mg/dL (8.4-25.7); Calc. Creatinine Clearance 51 mL/min (70-130); Calcium 8.2 mg/dL (7.8-10.44); Carbon Dioxide 17 mmol/L (23-31); Chloride 111 mmol/L (98-107); Estimated GFR-MDRD 55; Glucose 201 mg/dL (80-115); Potassium 3.3 mmol/L (3.5-5.1); Sodium 138 mmol/L (136-145)
[2020-08-05 05:53] LABS: #Lymphocytes 1.1 thou/uL (1.20-3.40); #Monocytes 0.7 thou/uL (0.11-0.59); #Neutrophils 5.7 thou/uL (1.40-6.50); %Basophils 0.1 % (0.0-1.0); %Eosinophils 0.2 % (0.0-10.0); %Lymphocytes 14.3 % (21.0-51.0); %Monocytes 8.7 % (0.0-10.0); %Neutrophils 76.7 % (42.0-75.0); Hemoglobin 10.9 g/dL (14.0-18.0); Mean Corpuscular HGB CONC 34.4 g/dL (32.0-36.0); Mean Corpuscular Hemoglobin 31.8 pg (27.0-31.0); Mean Corpuscular Volume 92.3 fL (78.0-98.0); Platelet Count 203 thou/uL (130-400); RBC Distribution Width 11.4 % (11.5-14.5); Red Blood Cell (RBC) Count 3.42 mill/uL (4.70-6.10); White Blood Cell (WBC) Count 7.4 thou/uL (4.8-10.8)
[2020-08-05] MEDS: Polyethylene Glycol 3350 17 GM Packet PO SCH (09:25)
[2020-08-05] MEDS: Senokot S 8.6-50 MG TAB PO SCH ×2 (09:25→20:49)
[2020-08-05] MEDS: Enoxaparin Sodium 40 MG/0.4 ML SYRINGE SC SCH (09:25)
[2020-08-05] MEDS: Pantoprazole 40 MG VIAL IVP SCH (09:26)
[2020-08-05] MEDS ORDERED: Potassium Chloride 40 MEQ in Sodium Chloride 0.9% 250 ML 250 ML IVPB SCH (09:30)
[2020-08-05] MEDS ORDERED: Potassium Chloride 20 MEQ TAB PO SCH (10:00)
[2020-08-05] MEDS ORDERED: HumaLOG 300 UNITS/3 ML VIAL SC PRN (10:05)
[2020-08-05] MEDS ORDERED: Dextrose 50% Abboject 50 ML SYRINGE SLOW IVP PRN (10:05)
[2020-08-05] MEDS ORDERED: Dextrose 5% in Water 1,000 ML IV PRN (10:05)
--- NOTE | 2020-08-05 10:08 | PDOC.HOSPP ---
- Subjective Encounter Date: 08/05/20 Encounter Time: 10:05 Subjective: Mr. Montiel was seen today in follow-up of DKA, due to non-compliance. He does not have any complaints today. He admits he hasn't been taking his insulin regularly. He is able to afford it through his insurance, he says he was just " being stupid". He denies nausea or vomiting, no abdominal pain. No chest pain, but notes some shortness of breath. - Objective Vital Signs & Weight: Vital Signs (12 hours) Temp Pulse Ox 08/05/20 07:44 98 08/05/20 07:23 98.7 F 08/05/20 04:00 100 F H 08/05/20 00:00 100.2 F H Weight Weight 141 lb 1.533 oz Most Recent Monitor Data Heart Rate from ECG 89 NIBP 126/67 NIBP BP-Mean 86 Respiration from ECG 15 SpO2 96 I&O: 08/04/20 08/05/20 08/06/20 06:59 06:59 06:59 Intake Total 4825 258 Output Total 4350 Balance 475 258 Result Diagrams: 08/05/20 04:00 08/05/20 04:00 Additional Labs: Accuchecks 08/05/20 08/05/20 08/05/20 09:22 08:11 06:48 POC Glucose 207 H 154 H 172 H 08/05/20 08/05/20 08/05/20 04:59 03:57 02:55 POC Glucose 199 H 205 H 219 H 08/04/20 08/04/20 08/04/20 22:59 21:56 20:55 POC Glucose 193 H 181 H 178 H 08/04/20 08/04/20 08/04/20 19:52 19:10 17:54 POC Glucose 151 H 168 H 209 H 08/04/20 08/04/20 08/04/20 17:24 16:16 15:10 POC Glucose 231 H 276 H 286 H Hospitalist ROS - Medication Medications: Active Medications Generic Name Dose Route Start Last Admin Trade Name Freq PRN Reason Stop Dose Admin Enoxaparin Sodium 40 mg 08/05/20 09:00 08/05/20 09:25 Enoxaparin Sodium 40 Mg/0.4 Ml Syringe SC 40 mg 0900 ADRIEL Administration Ceftriaxone Sodium 1 gm/ 100 mls @ 200 mls/hr 08/04/20 18:30 08/04/20 19:30 Sodium Chloride IVPB 100 mls Q24HR ADRIEL Administration Pantoprazole Sodium 40 mg 08/04/20 21:00 08/05/20 09:26 Pantoprazole 40 Mg Vial IVP 40 mg Q12HR ADRIEL Administration Polyethylene Glycol 17 gm 08/05/20 09:00 08/05/20 09:25 Polyethylene Glycol 3350 17 Gm Packet PO 17 gm DAILY ADRIEL Administration Potassium Chloride 40 meq 08/05/20 10:00 08/05/20 09:40 Potassium Chloride 20 Meq Tab PO 08/05/20 12:00 40 meq NOW ADRIEL Administration Senna/Docusate Sodium 2 tab 08/04/20 21:00 08/05/20 09:25 Senokot S 8.6-50 Mg Tab PO 2 tab BID ADRIEL Administration - Exam Eye: PERRL, anicteric sclera Neck: supple Heart: RRR, no murmur, no gallops, no rubs, normal peripheral pulses Respiratory: CTAB, no wheezes, no rales, no ronchi, normal chest expansion, no tachypnea, normal percussion Gastrointestinal: soft, non-tender, non-distended, normal bowel sounds, no palpable masses, no hepatomegaly Extremities: no cyanosis (unable to palpate distal pulses, but he has good capillary refill, and his feet are both warm, with no lesions. He has palpable popliteal pulses bilaterally), no edema Skin - other findings: no significant skin lesions, + bilateral bunios, and hammer toe deformities Psychiatric: normal affect, normal behavior, A&O x 3 Hosp A/P (1) DKA, type 2 Code(s): E11.10 - TYPE 2 DIABETES MELLITUS WITH KETOACIDOSIS WITHOUT COMA Status: Acute (2) SHERRY (acute kidney injury) Code(s): N17.9 - ACUTE KIDNEY FAILURE, UNSPECIFIED Status: Acute (3) Urinary retention Code(s): R33.9 - RETENTION OF URINE, UNSPECIFIED Status: Acute (4) Hypertension Code(s): I10 - ESSENTIAL (PRIMARY) HYPERTENSION Status: Chronic (5) Peripheral vascular disease Code(s): I73.9 - PERIPHERAL VASCULAR DISEASE, UNSPECIFIED Status: Chronic - Plan * DKA- resolved- his AG is now closed. Will discontinue the insulin ip, and place him on a SSI as well as scheduled insulin * Acute kidney injury- likely due to both pre-renal azotemia, and urinary rete ntion * Continue IV fluids, but will transition to LR, and continue Ha catheter- possibly check a voiding trial prior to discharge * Avoid NSAID's * Urinary retention- as above- he tells me this has happened to him before following colon surgery- possibly due to BPH and diabetes mellitus * BPH- will re-start Flomax * HTN- re-start Carvediolol
[2020-08-05] MEDS ORDERED: Insulin Glargine 5 UNITS in Pre-Filled Syringe 1 EACH SC SCH (12:15)
[2020-08-05 14:27] LABS: Anion Gap 11 mmol/L (10-20); BUN (Urea Nitrogen) 11 mg/dL (8.4-25.7); Calc. Creatinine Clearance 72 mL/min (70-130); Calcium 8.2 mg/dL (7.8-10.44); Carbon Dioxide 18 mmol/L (23-31); Chloride 113 mmol/L (98-107); Estimated GFR-MDRD 83; Potassium 3.4 mmol/L (3.5-5.1); Sodium 139 mmol/L (136-145)
[2020-08-05 14:28] LABS: Glucose 138 mg/dL (80-115)
[2020-08-05] MEDS: cefTRIAXone\\ROCEPHIN 1 GM in Sodium Chloride 0.9% 100 ML IVPB SCH (17:11)
[2020-08-05] MEDS: Atorvastatin Calcium 10 MG TAB PO SCH (20:49)
[2020-08-05] MEDS: Carvedilol 25 MG TAB PO SCH (20:49)
[2020-08-05] MEDS: Finasteride 5 MG TAB PO SCH (20:49)
[2020-08-05] MEDS: Tamsulosin HCl 0.4 MG CAP PO SCH (20:49)
[2020-08-06] MEDS: HumaLOG 300 UNITS/3 ML VIAL SC PRN ×2 (06:22→11:45)
[2020-08-06] MEDS ORDERED: Potassium Chloride 20 MEQ TAB PO SCH (06:30)
[2020-08-06 07:16] LABS: Anion Gap 17 mmol/L (10-20); BUN (Urea Nitrogen) 11 mg/dL (8.4-25.7); Calc. Creatinine Clearance 77 mL/min (70-130); Calcium 8.4 mg/dL (7.8-10.44); Carbon Dioxide 19 mmol/L (23-31); Chloride 106 mmol/L (98-107); Estimated GFR-MDRD 88; Glucose 202 mg/dL (80-115); Potassium 3.7 mmol/L (3.5-5.1); Sodium 138 mmol/L (136-145)
[2020-08-06] MEDS: Enoxaparin Sodium 40 MG/0.4 ML SYRINGE SC SCH (08:19)
[2020-08-06] MEDS: Tamsulosin HCl 0.4 MG CAP PO SCH ×2 (08:19→21:43)
[2020-08-06] MEDS: levETIRAcetam 500 MG TAB PO SCH (08:19)
[2020-08-06] MEDS: Carvedilol 25 MG TAB PO SCH ×2 (08:19→21:44)
[2020-08-06] MEDS: Senokot S 8.6-50 MG TAB PO SCH ×2 (08:19→21:44)
[2020-08-06] MEDS: Polyethylene Glycol 3350 17 GM Packet PO SCH (08:26)
[2020-08-06] MEDS ORDERED: Insulin Glargine 5 UNITS in Pre-Filled Syringe 1 EACH SC SCH (09:00)
[2020-08-06] MEDS: Insulin Glargine 5 UNITS in Pre-Filled Syringe 1 EACH SC SCH ×2 (09:32→21:46)
[2020-08-06] MEDS ORDERED: Lidocaine 2% Viscous Solution 10 ML, Aluminum & Magnesium Hydroxide 30 ML SSW SCH (13:15)
[2020-08-06] MEDS ORDERED: hydrALAZINE 25 MG TAB PO PRN (14:02)
--- NOTE | 2020-08-06 14:02 | PDOC.HOSPP ---
- Subjective Encounter Date: 08/06/20 Encounter Time: 13:59 Subjective: Mr. Montiel was seen today in follow-up of DKA. He notes some pain in his left upper chest. He says it is worse when he breaths, and also when he eats. He also notes a little dyspnea as well. - Objective Vital Signs & Weight: Vital Signs (12 hours) Temp Pulse Resp BP Pulse Ox 08/06/20 12:29 70 18 150/82 H 97 08/06/20 11:33 69 18 185/53 H 96 08/06/20 07:28 98.2 F 72 18 157/84 H 97 08/06/20 05:42 98.9 F 77 20 151/75 H 94 L Weight Weight 141 lb 1.533 oz Most Recent Monitor Data Heart Rate from ECG 79 NIBP 147/75 NIBP BP-Mean 99 Respiration from ECG 12 SpO2 96 I&O: 08/05/20 08/06/20 08/07/20 06:59 06:59 06:59 Intake Total 4881 2938 Output Total 4353 4400 Balance 475 -3653 Result Diagrams: 08/05/20 04:00 08/06/20 06:30 Additional Labs: Accuchecks 08/06/20 08/06/20 08/05/20 11:37 05:41 20:08 POC Glucose 216 H 203 H 203 H 08/05/20 08/05/20 16:53 14:51 POC Glucose 120 H 75 Hospitalist ROS - Medication Medications: Active Medications Generic Name Dose Route Start Last Admin Trade Name Freq PRN Reason Stop Dose Admin Atorvastatin Calcium 10 mg 08/05/20 21:00 08/05/20 20:49 Atorvastatin Calcium 10 Mg Tab PO 10 mg HS ADRIEL Administration Carvedilol 25 mg 08/05/20 21:00 08/06/20 08:19 Carvedilol 25 Mg Tab PO 25 mg BID ADRIEL Administration Enoxaparin Sodium 40 mg 08/05/20 09:00 08/06/20 08:19 Enoxaparin Sodium 40 Mg/0.4 Ml Syringe SC 40 mg 0900 ADRIEL Administration Finasteride 5 mg 08/05/20 21:00 08/05/20 20:49 Finasteride 5 Mg Tab PO 5 mg HS ADRIEL Administration Ceftriaxone Sodium 1 gm/ 100 mls @ 200 mls/hr 08/04/20 18:30 08/05/20 17:11 Sodium Chloride IVPB 100 mls Q24HR ADRIEL Administration Insulin Glargine 5 units/ 0.05 mls @ 1 mls/hr 08/05/20 10:19 08/06/20 09:32 Miscellaneous Medication SC 0.05 mls QAM ADRIEL Administration Insulin Human Lispro 0 units 08/05/20 10:05 08/06/20 11:45 Humalog 300 Units/3 Ml Vial SC 4 unit .MODERATE SLIDING SC PRN Administration Moderate Correctional Scale Levetiracetam 500 mg 08/06/20 09:00 08/06/20 08:19 Levetiracetam 500 Mg Tab PO 500 mg DAILY ADRIEL Administration Polyethylene Glycol 17 gm 08/05/20 09:00 08/06/20 08:26 Polyethylene Glycol 3350 17 Gm Packet PO Not Given DAILY ADRIEL Senna/Docusate Sodium 2 tab 08/04/20 21:00 08/06/20 08:19 Senokot S 8.6-50 Mg Tab PO 2 tab BID ADRIEL Administration Tamsulosin HCl 0.4 mg 08/05/20 21:00 08/06/20 08:19 Tamsulosin Hcl 0.4 Mg Cap PO 0.4 mg BID ADRIEL Administration - Exam Eye: PERRL, anicteric sclera Heart: RRR, no murmur, no gallops, no rubs, normal peripheral pulses Respiratory: CTAB, no wheezes, no rales, no ronchi, normal chest expansion, no tachypnea Gastrointestinal: soft, non-tender, non-distended, normal bowel sounds, no palpable masses, no hepatomegaly Extremities: no cyanosis, no clubbing, no edema Hosp A/P (1) DKA, type 2 Code(s): E11.10 - TYPE 2 DIABETES MELLITUS WITH KETOACIDOSIS WITHOUT COMA Sta tus: Acute (2) SHERRY (acute kidney injury) Code(s): N17.9 - ACUTE KIDNEY FAILURE, UNSPECIFIED Status: Acute (3) Urinary retention Code(s): R33.9 - RETENTION OF URINE, UNSPECIFIED Status: Acute (4) Hypertension Code(s): I10 - ESSENTIAL (PRIMARY) HYPERTENSION Status: Chronic (5) Peripheral vascular disease Code(s): I73.9 - PERIPHERAL VASCULAR DISEASE, UNSPECIFIED Status: Chronic - Plan * DKA- resolved * Acute kidney injury- improved * Avoid NSAID's * Chest pain- likely due to gastritis from Nausea and vomiting- will try a GI cooktail, but also as a precaution an EKG was done- which did not show any new change ( RBBB), and will check a troponin, as well as D-Dimer * Urinary retention- will need to have a voiding trial prior to discharge * BPH- Continue his home medications * HTN- re-start Carvediolol will add Hydralazine as needed
[2020-08-06] MEDS: cefTRIAXone\\ROCEPHIN 1 GM in Sodium Chloride 0.9% 100 ML IVPB SCH (18:25)
[2020-08-06] MEDS: Atorvastatin Calcium 10 MG TAB PO SCH (21:43)
[2020-08-06] MEDS: Calcium Carbonate 500 MG ChewTAB PO PRN (21:44)
[2020-08-06] MEDS: Finasteride 5 MG TAB PO SCH (21:44)
[2020-08-07] MEDS: HumaLOG 300 UNITS/3 ML VIAL SC PRN ×3 (06:05→17:41)
[2020-08-07 06:43] LABS: Anion Gap 16 mmol/L (10-20); BUN (Urea Nitrogen) 10 mg/dL (8.4-25.7); Calc. Creatinine Clearance 84 mL/min (70-130); Calcium 8.3 mg/dL (7.8-10.44); Carbon Dioxide 25 mmol/L (23-31); Chloride 101 mmol/L (98-107); Estimated GFR-MDRD Greater than 90; Glucose 200 mg/dL (80-115); Potassium 3.5 mmol/L (3.5-5.1); Sodium 138 mmol/L (136-145)
[2020-08-07] MEDS ORDERED: Electrolyte Replacement Protocol FS PRN (07:30)
[2020-08-07] MEDS ORDERED: Potassium Chloride 20 MEQ TAB PO SCH (08:00)
[2020-08-07] MEDS: Carvedilol 25 MG TAB PO SCH ×2 (09:09→21:21)
[2020-08-07] MEDS: Tamsulosin HCl 0.4 MG CAP PO SCH ×2 (09:09→21:21)
[2020-08-07] MEDS: levETIRAcetam 500 MG TAB PO SCH (09:09)
[2020-08-07] MEDS: Insulin Glargine 5 UNITS in Pre-Filled Syringe 1 EACH SC SCH ×2 (09:10→21:25)
[2020-08-07] MEDS: Senokot S 8.6-50 MG TAB PO SCH ×2 (09:11→21:21)
[2020-08-07] MEDS: Polyethylene Glycol 3350 17 GM Packet PO SCH (09:14)
[2020-08-07] MEDS: Enoxaparin Sodium 40 MG/0.4 ML SYRINGE SC SCH (09:19)
--- NOTE | 2020-08-07 14:32 | PDOC.HOSPP ---
- Subjective Encounter Date: 08/07/20 Encounter Time: 14:30 Subjective: Mr. Montiel was seen today in follow-up of DKA. He says he was feeloing fine this morning. Got up, took a shower, and ate. Now with lunch he notes the return of about 5/10 chest pain on the left side of his chest. It is off and on. He notes a little dyspnea as well. - Objective Vital Signs & Weight: Vital Signs (12 hours) Temp Pulse Resp BP Pulse Ox 08/07/20 08:00 94 L 08/07/20 07:53 98.8 F 73 18 156/74 H 94 L Weight Weight 141 lb 1.533 oz Most Recent Monitor Data Heart Rate from ECG 79 NIBP 147/75 NIBP BP-Mean 99 Respiration from ECG 12 SpO2 96 I&O: 08/06/20 08/07/20 08/08/20 06:59 06:59 06:59 Intake Total 2938 1050 Output Total 4400 4100 Balance -1462 -3050 Result Diagrams: 08/05/20 04:00 08/07/20 05:48 Additional Labs: Accuchecks 08/07/20 08/06/20 11:37 16:22 POC Glucose 250 H 159 H Hospitalist ROS - Medication Medications: Active Medications Generic Name Dose Route Start Last Admin Trade Name Freq PRN Reason Stop Dose Admin Atorvastatin Calcium 10 mg 08/05/20 21:00 08/06/20 21:43 Atorvastatin Calcium 10 Mg Tab PO 10 mg HS ADRIEL Administration Calcium Carbonate 1,000 mg 08/04/20 18:19 08/06/20 21:44 Calcium Carbonate 500 Mg Chewtab PO 1,000 mg Q4H PRN Administration Heartburn or Indigestion Carvedilol 25 mg 08/05/20 21:00 08/07/20 09:09 Carvedilol 25 Mg Tab PO 25 mg BID ADRIEL Administration Enoxaparin Sodium 40 mg 08/05/20 09:00 08/07/20 09:19 Enoxaparin Sodium 40 Mg/0.4 Ml Syringe SC 40 mg 0900 ADRIEL Administration Finasteride 5 mg 08/05/20 21:00 08/06/20 21:44 Finasteride 5 Mg Tab PO 5 mg HS ADRIEL Administration Ceftriaxone Sodium 1 gm/ 100 mls @ 200 mls/hr 08/04/20 18:30 08/06/20 18:25 Sodium Chloride IVPB 100 mls Q24HR ADRIEL Administration Insulin Glargine 5 units/ 0.05 mls @ 1 mls/hr 08/05/20 10:19 08/07/20 09:10 Miscellaneous Medication SC 0.05 mls QAM ADRIEL Administration Insulin Glargine 5 units/ 0.05 mls @ 0 mls/hr 08/06/20 21:00 08/06/20 21:46 Miscellaneous Medication SC 0.05 mls HS ADRIEL Administration Insulin Human Lispro 0 units 08/05/20 10:05 08/07/20 11:52 Humalog 300 Units/3 Ml Vial SC 4 unit .MODERATE SLIDING SC PRN Administration Moderate Correctional Scale Levetiracetam 500 mg 08/06/20 09:00 08/07/20 09:09 Levetiracetam 500 Mg Tab PO 500 mg DAILY ADRIEL Administration Polyethylene Glycol 17 gm 08/05/20 09:00 08/07/20 09:14 Polyethylene Glycol 3350 17 Gm Packet PO 17 gm DAILY ADRIEL Administration Senna/Docusate Sodium 2 tab 08/04/20 21:00 08/07/20 09:11 Senokot S 8.6-50 Mg Tab PO Not Given BID ADRIEL Tamsulosin HCl 0.4 mg 08/05/20 21:00 08/07/20 09:09 Tamsulosin Hcl 0.4 Mg Cap PO 0.4 mg BID ADRIEL Administration - Exam Eye: PERRL Heart: RRR, no murmur, no gallops, no rubs, normal peripheral pulses Respiratory: CTAB ( with coarse breath sounds on the left) Gastrointestinal: soft, non-tender, non-distended, normal bowel sounds, no palpable masses, no hepatomegaly Extremities: no cyanosis, no clubbing, no edema Hosp A/P (1) DKA, type 2 Code(s): E11.10 - TYPE 2 DIABETES MELLITUS WITH KETOACIDOSIS WITHOUT COMA Status: Acute (2) SHERRY (acute kidney injury) Code(s): N17.9 - ACUTE KIDNEY FAILURE, UNSPECIFIED Status: Acute (3) Urinary retention Code(s): R33.9 - RETENTION OF URINE, UNSPECIFIED Status: Acute (4) Hypertension Code(s): I10 - ESSENTIAL (PRIMARY) HYPERTENSION Status: Chronic (5) Peripheral vascular disease Code(s): I73.9 - PERIPHERAL VASCULAR DISEASE, UNSPECIFIED Status: Chronic - Plan * DKA- resolved * Acute kidney injury- resolved * Avoid NSAID's * Chest pain- unclear- due to his history of DM, and family history of heart disease, will check a stress test . Also during the vomiting spells, he may have aspirated, therefore will repeat his CXR. * Urinary retention- discontinue hutchison, and observe * BPH- Continue his home medications * HTN- blood pressure is elevated. Will add Lisinopril
--- NOTE | 2020-08-07 15:07 | RAD ---
EXAM: Chest 2 views: HISTORY: Chest pain and dyspnea COMPARISON: 07/20/2018 FINDINGS: There is a normal-sized cardiomediastinal silhouette. There is no evidence of consolidation, mass, or pleural effusion. Degenerative changes are seen in the spine. IMPRESSION: No evidence of acute cardiopulmonary disease
[2020-08-07] MEDS: HumaLOG 300 UNITS/3 ML VIAL SC SCH (17:41)
[2020-08-07] MEDS: Lisinopril 5 MG TAB PO SCH (17:41)
[2020-08-07] MEDS: Atorvastatin Calcium 10 MG TAB PO SCH (21:21)
[2020-08-07] MEDS: Finasteride 5 MG TAB PO SCH (21:21)
[2020-08-07] MEDS: Calcium Carbonate 500 MG ChewTAB PO PRN (21:22)
[2020-08-08] MEDS: HumaLOG 300 UNITS/3 ML VIAL SC PRN ×3 (06:09→16:24)
[2020-08-08 06:37] LABS: Anion Gap 14 mmol/L (10-20); BUN (Urea Nitrogen) 9 mg/dL (8.4-25.7); Calc. Creatinine Clearance 106 mL/min (70-130); Calcium 8.9 mg/dL (7.8-10.44); Carbon Dioxide 28 mmol/L (23-31); Chloride 99 mmol/L (98-107); Estimated GFR-MDRD Greater than 90; Glucose 266 mg/dL (80-115); Sodium 137 mmol/L (136-145)
[2020-08-08] MEDS: HumaLOG 300 UNITS/3 ML VIAL SC SCH ×3 (08:07→16:24)
[2020-08-08] MEDS ORDERED: Insulin Glargine 8 UNITS in Pre-Filled Syringe 1 EACH SC SCH ×2 (09:00→21:00)
[2020-08-08] MEDS: Carvedilol 25 MG TAB PO SCH (12:51)
[2020-08-08] MEDS: levETIRAcetam 500 MG TAB PO SCH (12:51)
[2020-08-08] MEDS: Polyethylene Glycol 3350 17 GM Packet PO SCH (12:55)
[2020-08-08] MEDS: Enoxaparin Sodium 40 MG/0.4 ML SYRINGE SC SCH (12:55)
[2020-08-08] MEDS: Senokot S 8.6-50 MG TAB PO SCH (12:56)
[2020-08-08] MEDS: Tamsulosin HCl 0.4 MG CAP PO SCH (12:58)
--- NOTE | 2020-08-08 13:56 | NM ---
CARDIAC SPECT: HISTORY: A 65-year-old male with chest pain, hypertension, diabetes, peripheral vascular disease. TECHNIQUE: A myocardial perfusion scan was performed using the single-isotope 1-day protocol with Technetium 99m sestamibi. Nine mCi were injected intravenously for the rest exam followed by 30 mCi for the stress study. Pharmacologic stress adenosine was monitored and interpreted by Dr. Guardado. FINDINGS: Homogeneous tracer distribution is seen in the myocardial segments on stress and rest images without fixed ore reversible defects. ATED SPECT LVEF: 76th percentile. WALL MOTION EXAM: Normal. IMPRESSION: Normal myocardial perfusion scan. POS: ESVINA
[2020-08-08 15:20] VITALS: TEMP 97.9
--- NOTE | 2020-08-08 15:29 | PDOC.HOSPP ---
- Subjective Encounter Date: 08/08/20 Encounter Time: 15:25 Subjective: Mr. Montiel was seen today in follow-up of DKA. He says he feels fine today. No new complaints. Chest pain has resolved. - Objective Vital Signs & Weight: Vital Signs (12 hours) Temp Pulse Resp BP BP Pulse Ox 08/08/20 12:45 97.9 F 84 18 165/69 H 99 08/08/20 08:00 97 08/08/20 07:46 99 F 82 19 133/84 97 08/08/20 05:14 97.8 F 73 16 147/82 H 96 Weight Weight 141 lb 1.533 oz Most Recent Monitor Data Heart Rate from ECG 79 NIBP 147/75 NIBP BP-Mean 99 Respiration from ECG 12 SpO2 96 I&O: 08/07/20 08/08/20 08/09/20 06:59 06:59 06:59 Intake Total 1050 2280 Output Total 4100 3475 350 Balance -3050 -1195 -350 Result Diagrams: 08/05/20 04:00 08/08/20 05:32 Additional Labs: Accuchecks 08/08/20 08/08/20 08/07/20 12:46 05:11 20:46 POC Glucose 294 H 308 H 223 H 08/07/20 16:34 POC Glucose 271 H Hospitalist ROS - Medication Medications: Active Medications Generic Name Dose Route Start Last Admin Trade Name Freq PRN Reason Stop Dose Admin Acetaminophen 650 mg 08/04/20 18:19 08/07/20 21:21 Acetaminophen 325 Mg Tab PO 650 mg Q4H PRN Administration Headache/Fever/Mild Pain (1-3) Atorvastatin Calcium 10 mg 08/05/20 21:00 08/07/20 21:21 Atorvastatin Calcium 10 Mg Tab PO 10 mg HS ADRIEL Administration Calcium Carbonate 1,000 mg 08/04/20 18:19 08/07/20 21:22 Calcium Carbonate 500 Mg Chewtab PO 1,000 mg Q4H PRN Administration Heartburn or Indigestion Carvedilol 25 mg 08/05/20 21:00 08/08/20 12:51 Carvedilol 25 Mg Tab PO 25 mg BID ADRIEL Administration Enoxaparin Sodium 40 mg 08/05/20 09:00 08/08/20 12:55 Enoxaparin Sodium 40 Mg/0.4 Ml Syringe SC 40 mg 0900 ADRIEL Administration Finasteride 5 mg 08/05/20 21:00 08/07/20 21:21 Finasteride 5 Mg Tab PO 5 mg HS ADRIEL Administration Insulin Glargine 8 units/ 0.08 mls @ 0 mls/hr 08/08/20 09:00 08/08/20 12:51 Miscellaneous Medication SC 0.08 mls QAM ADRIEL Administration Insulin Human Lispro 0 units 08/05/20 10:05 08/08/20 12:53 Humalog 300 Units/3 Ml Vial SC 6 unit .MODERATE SLIDING SC PRN Administration Moderate Correctional Scale Insulin Human Lispro 0 units 08/05/20 10:05 08/07/20 21:25 Humalog 300 Units/3 Ml Vial SC 2 unit .BEDTIME SLIDING SC PRN Administration Bedtime Correctional Scale Insulin Human Lispro 3 units 08/07/20 17:00 08/08/20 12:53 Humalog 300 Units/3 Ml Vial SC 3 unit AC ADRIEL Administration Levetiracetam 500 mg 08/06/20 09:00 08/08/20 12:51 Levetiracetam 500 Mg Tab PO 500 mg DAILY ADRIEL Administration Lisinopril 5 mg 08/07/20 18:00 08/07/20 17:41 Lisinopril 5 Mg Tab PO 5 mg 1800 ADRIEL Administration Polyethylene Glycol 17 gm 08/05/20 09:00 08/08/20 12:55 Polyethylene Glycol 3350 17 Gm Packet PO Not Given DAILY ADRIEL Senna/Docusate Sodium 2 tab 08/04/20 21:00 08/08/20 12:56 Senokot S 8.6-50 Mg Tab PO Not Given BID ADRIEL Tamsulosin HCl 0.4 mg 08/05/20 21:00 08/08/20 12:58 Tamsulosin Hcl 0.4 Mg Cap PO 0.4 mg BID ADRIEL Administration - Exam Eye: PERRL, anicteric sclera Heart: RRR, no murmur, no gallops, no rubs, normal peripheral pulses Respiratory: CTAB, no wheezes, no rales, no ronchi, normal chest expansion, no tachypnea, normal percussion Gastrointestinal: soft, non-tender, non-distended, normal bowel sounds, no palpable masses, no hepatomegaly, no splenomegaly Extremities: no cyanosis, no edema Hosp A/P (1) DKA, type 2 Code(s): E11.10 - TYPE 2 DIABETES MELLITUS WITH KETOACIDOSIS WITHOUT COMA Status: Acute (2) SHERRY (acute kidney injury) Code(s): N17.9 - ACUTE KIDNEY FAILURE, UNSPECIFIED Status: Acute (3) Urinary retention Code(s): R33.9 - RETENTION OF URINE, UNSPECIFIED Status: Acute (4) Hypertension Code(s): I10 - ESSENTIAL (PRIMARY) HYPERTENSION Status: Chronic (5) Peripheral vascular disease Code(s): I73.9 - PERIPHERAL VASCULAR DISEASE, UNSPECIFIED Status: Chronic - Plan * DKA- resolved * Acute kidney injury- resolved * Avoid NSAID's * Chest pain- resolved- ? etiology- possibly musculoskeletal in origin. Stress test was negative, and he remembers lifting somethins heavy in the days prior to admission * Urinary retention- discontinue hutchison, and observe * BPH- Continue his home medications * HTN- blood pressure is elevated. Continue Lisinopril ( risks and benefits of Lisinopril were explained. * Stable for discharge home- he will be discharge on NPH 8 units twice a day instead of Lantus, until September, when he says he can afford it. Also Regular insulin in the place of Novolog
--- NOTE | 2020-08-08 15:43 | PDOC.DS.DS ---
Provider - Provider Date of Admission: 08/04/20 13:23 Date of Discharge: 08/08/20 Admitting Provider: Javy Love MD Primary Care Physician: HOWARD ROSE MD Course - Hospital Course Hospital Course: Mr. Montiel is a pleasant 65-year-old gentleman that has a history of diabetes mellitus. He presented to the emergency room with complaints of abdominal pain as well as nausea vomiting. He was evaluated in the emergency room and found to be in severe diabetic ketoacidosis. He had a bicarbonate level less than 8. He was admitted to the [facility] and started on an insulin drip. The patient admits that he had not been taking his insulin daily and really did not have much of a reason as to why he was not taking his insulin. He denies having any difficulty obtaining the insulin at the time of admission and no particular side effects from the medication he just says that he was "being stupid". After being in the ICU overnight and on the insulin drip he was able to be placed back on subcutaneous insulin as the DKA had resolved. We were going to discharge the p atient however he started complaining of chest pain. Since he is a diabetic with uncontrolled diabetes there was concern that there could be ischemic heart disease for this reason a stress test was done and it was negative he also had a series of troponins repeated which were also negative. He had a CT angiogram of the chest on admission which was negative for PE and a repeat D-dimer during the episode of chest pain was also within range for his age. An abdominal series was also done a chest x-ray was done to rule out aspiration pneumonia this was also negative. And by the time all these test results came back the patient's chest pain had resolved. Next The patient states that he will be having some difficulty affording his medications and for this reason he will be discharged home on NPH instead of Lantus. He believes that he will be able to afford the Lantus in September and also that his primary care physician may be able to give him a sample. Therefore both Lantus and NPH are reflected in his discharge profile. He also will be taking Novolin R instead of the Humalog or NovoLog until September as well when he expects that he will be able to afford it giving the new year and deductible. The patient was also found to have an elevated blood pressure despite being placed back on carvedilol and for this reason lisinopril was added to his regimen. The risks of both angioedema and chronic cough were discussed with the patient and he was agreeable to starting the medication. The patient was also noted to have urinary retention. He has a history of urine retention in the past. A hutchison was placed. He will be given a voiding trial prior to discharge. If he is unable to void, then he will be discharge home with a hutchison catheter, and willr ecommend follow-up with a Urologist. ( he tells me he had to have a hutchison catheter before due to urinary retention a few years ago) Pertinent Studies: CTA- chest CT- ABdomen and Pelvis Stress Test Resuscitation Status: 08/04/20 18:19 Resuscitation Status Routine Resuscitation Status: FULL: Full Resuscitation - Labs Lab Results: 08/05/20 04:00 08/08/20 05:32 Abnormal Lab Results - Last 48 hrs 08/08/20 05:32: Creatinine 0.63 L Microbiology - Entire Visit 08/04/20 13:25 Venous blood - Right Arm Blood Culture - Preliminary NO GROWTH AT 48 HOURS 08/04/20 13:22 Venous blood - Left Arm Blood Culture - Preliminary NO GROWTH AT 48 HOURS 08/04/20 15:40 Urine voided Urine Culture - Final NO GROWTH AT 48 HOURS - Physical Exam Vitals: Vital Signs (12 hours) Temp Pulse Resp BP BP Pulse Ox 08/08/20 12:45 97.9 F 84 18 165/69 H 99 08/08/20 08:00 97 08/08/20 07:46 99 F 82 19 133/84 97 08/08/20 05:14 97.8 F 73 16 147/82 H 96 Weight Weight 141 lb 1.533 oz Most Recent Monitor Data Heart Rate from ECG 79 NIBP 147/75 NIBP BP-Mean 99 Respiration from ECG 12 SpO2 96 Physical Exam: The patient was seen and examined on the day of discharge. Problem - Problem (1) DKA, type 2 Code(s): E11.10 - TYPE 2 DIABETES MELLITUS WITH KETOACIDOSIS WITHOUT COMA Status: Acute (2) SHERRY (acute kidney injury) Code(s): N17.9 - ACUTE KIDNEY FAILURE, UNSPECIFIED Status: Acute (3) Urinary retention Code(s): R33.9 - RETENTION OF URINE, UNSPECIFIED Status: Acute (4) Hypertension Code(s): I10 - ESSENTIAL (PRIMARY) HYPERTENSION Status: Chronic (5) Peripheral vascular disease Code(s): I73.9 - PERIPHERAL VASCULAR DISEASE, UNSPECIFIED Status: Chronic Plan - Discharge Medications Prescriptions: NPH, Human Insulin Isophane [HumuLIN N] 8 unit SC BID #2 vial Lisinopril [Zestril] 5 mg PO 1800 #30 tab Home Medications: Medication Instructions Recorded Confirmed Type Carvedilol [Coreg] 25 mg PO BID 07/20/18 08/04/20 History Dapagliflozin/Metformin HCl 1 tablet PO DAILY 07/20/18 08/04/20 History [Xigduo XR] Pravastatin Sodium 40 mg PO DAILY 07/20/18 08/04/20 History Ferrous Sulfate [Feosol] 325 mg PO DAILY 07/25/18 08/04/20 History Finasteride [Proscar] 5 mg PO HS 07/25/18 08/04/20 History Tamsulosin HCl 0.4 mg PO BID 07/25/18 08/04/20 History Insulin Glargine,Hum.Rec.Anlog 2 - 10 units SQ DAILY-AC 08/04/20 08/04/20 History [Lantus] Insulin Regular, Human [Novolin R] 1 applic SQ ACHS PRN 08/04/20 08/04/20 History Levetiracetam [levETIRAcetam] 500 mg PO DAILY 08/04/20 08/04/20 History Lisinopril [Zestril] 5 mg PO 1800 #30 tab 08/08/20 Rx NPH, Human Insulin Isophane 8 unit SC BID #2 vial 08/08/20 Rx [HumuLIN N] Allergies: No Known Drug Allergies Allergy (Verified 08/04/20 18:11) - Discharge Instructions Discharge Instructions:: Follow-up with your Primary Care Provider in 1 week Record your blood glucose readings and go over with your Doctor on the next visit Activity:: Activity as Tolerated Nourishment:: Diabetic Diet - Follow up Plan Referrals: HOWARD ROSE [Primary Care Provider] - Disposition: HOME Quality - Care Measures CORE MEASURES:: N/A
[2020-08-08 16:02] VITALS: BP 138/78
[2020-08-08] MEDS: Lisinopril 5 MG TAB PO SCH (17:34)
== END 2020-08-08 18:06 | disposition home or self-care (01) | DRG 638 ==
LOC: ERS 10:05 → IMCU/EMU 13:23 → SJJU 08-05 22:34 → IMCU/EMU 08-05 22:34 → T4-B 08-05 22:39
PROVIDERS: ADMIT Internal Medicine; ATTEND Internal Medicine
DX: E11.10 Type 2 diabetes mellitus with ketoacidosis without coma (principal); N17.9 Acute kidney failure, unspecified; E87.1 Hypo-osmolality and hyponatremia; E87.2 Acidosis; E86.0 Dehydration; E87.5 Hyperkalemia; R33.9 Retention of urine, unspecified; N18.2 Chronic kidney disease, stage 2 (mild); E78.00 Pure hypercholesterolemia, unspecified; K20.90 Esophagitis, unspecified without bleeding; Z20.828 Contact with and (suspected) exposure to other viral communicable diseases; I12.9 Hypertensive chronic kidney disease with stage 1 through stage 4 chronic kidney disease, or unspecified chronic kidney disease; Z90.49 Acquired absence of other specified parts of digestive tract; Z85.038 Personal history of other malignant neoplasm of large intestine; Z91.14 Patient's other noncompliance with medication regimen; Z79.899 Other long term (current) drug therapy; Z79.51 Long term (current) use of inhaled steroids; Z79.2 Long term (current) use of antibiotics; I73.9 Peripheral vascular disease, unspecified; N40.0 Benign prostatic hyperplasia without lower urinary tract symptoms
CPT/HCPCS: 36415; 36416; 71045; 71046; 71275; 74177; 78452; 80048; 80053; 81003; 81015; 82010; 82805; 83036; 83605; 83735; 83930; 84100; 84484; 85025; 85379; 86140; 87040; 87086; 87635; 93005; 93010; 93017; 94664; 96365; 96366; 96367; 96375; 96376; A9500; C9113; J0610; J0692; J0696; J1650; J1815; J2001; J2270; J2405; J3480; J3490; Q9967; U0003

== ENCOUNTER 2022-01-25 12:14 | Outpatient (CLI) | payer MEDICARE, OTHER ==
[~2022-01-25 12:14] MED LIST changes: -ISOVUE-370 76%-LOCM 1 ML ONE; +Iopamidol 370 76% 100 ML VIAL ONE; -Iopamidol 370 76% 50 ML VIAL FS ONE
== END 2022-01-25 12:15 | disposition home or self-care (01) ==
LOC: CT 12:14
PROVIDERS: ATTEND Internal Medicine Hematology & Oncology
DX: C18.7 Malignant neoplasm of sigmoid colon (principal)
CPT/HCPCS: 71260; 74177; Q9967

== ENCOUNTER 2023-01-14 09:13 | Outpatient (CLI) | payer MEDICARE, OTHER ==
[2023-01-14] MEDS ORDERED: Iopamidol 370 76% 100 ML VIAL ONE (10:52)
== END 2023-01-14 09:14 | disposition home or self-care (01) ==
LOC: BICCT 09:13
PROVIDERS: ATTEND Internal Medicine Hematology & Oncology
DX: C18.9 Malignant neoplasm of colon, unspecified (principal); D50.0 Iron deficiency anemia secondary to blood loss (chronic)
CPT/HCPCS: 71260; 74177; 82565

== ENCOUNTER 2025-08-20 11:54 | Inpatient (IN) | payer MEDICARE, OTHER ==
[~2025-08-20 11:54] MED LIST changes: -Iopamidol 370 76% 100 ML VIAL ONE; +Iopamidol-370 76% 500 ML MDV (1 ML CHARGE) ONE
[2025-08-20 12:45] LABS: #Basophils 0.03 10x3/uL (0.0-0.2); #Eosinophils 0.18 10x3/uL (0.0-0.7); #Monocytes 0.33 10x3/uL (0.11-0.59); #Neutrophils 4.76 10x3/uL (1.40-6.50); %Basophils 0.5 % (0.0-1.0); %Eosinophils 2.8 % (0.0-10.0); %Lymphocytes 18.2 % (21.0-51.0); %Monocytes 5.1 % (0.0-10.0); %Neutrophils 73.2 % (42.0-75.0); Hematocrit 33.6 % (42.0-52.0); Hemoglobin 11.4 g/dL (14.0-18.0); Mean Corpuscular Hemoglobin 31.5 pg (27.0-31.0); Mean Corpuscular Volume 92.8 fL (78.0-98.0); Platelet Count 159 10x3/uL (130-400); Red Blood Cell (RBC) Count 3.62 mill/uL (4.70-6.10); White Blood Cell (WBC) Count 6.49 10x3/uL (4.8-10.8)
[2025-08-20 12:51] LABS: ALT (SGPT) 21 U/L (Less than 45); AST (SGOT) 30 U/L (11-34); Albumin 3.5 g/dL (3.1-4.5); Alkaline Phosphatase 64 U/L (40-110); Anion Gap 11 mmol/L (10-20); BUN (Urea Nitrogen) 15 mg/dL (8.4-25.7); Bilirubin, Total 0.5 mg/dL (0.3-1.2); Calc. Creatinine Clearance 0 mL/min (70-130); Calcium 8.5 mg/dL (7.8-10.44); Carbon Dioxide 26 mmol/L (23-31); Chloride 104 mmol/L (98-107); Globulin 2.5 g/dL (2.4-3.5); Glucose 174 mg/dL (80-115); Magnesium 1.9 mg/dL (1.6-2.6); Potassium 4.3 mmol/L (3.5-5.1); Sodium 137 mmol/L (136-145)
[2025-08-20 13:01] LABS: INR-International Normal Ratio 1.1; PTT 31.8 sec (22.9-36.1); Prothrombin Time 14.8 sec (12.0-14.7)
[2025-08-20] MEDS ORDERED: diphenhydrAMINE 50 MG/ML VIAL ONE (13:03)
[2025-08-20] MEDS ORDERED: Metoclopramide HCl 10 MG (2 mL) VIAL ONE (13:03)
[2025-08-20] MEDS ORDERED: hydrALAZINE 20 MG/ML VIAL ONE (13:03)
[2025-08-20] MEDS ORDERED: Aspirin Chewable 81 MG TAB ONE (13:03)
[2025-08-20] MEDS ORDERED: Glucagon 1 MG/ML KIT IM PRN (14:52)
[2025-08-20] MEDS ORDERED: Dextrose 50% Abboject 50 ML SYRINGE SLOW IVP PRN (14:52)
[2025-08-20] MEDS ORDERED: hydrALAZINE 20 MG/ML VIAL SLOW IVP PRN (14:52)
[2025-08-20] MEDS ORDERED: Ondansetron PF 4 MG/2 ML Vial IVP PRN (14:52)
[2025-08-20] MEDS: Finasteride 5 MG TAB PO SCH (20:33)
[2025-08-20] MEDS: Rosuvastatin 20 MG TAB PO SCH (20:33)
[2025-08-20] MEDS: Carvedilol 25 MG TAB PO SCH (20:34)
[2025-08-20] MEDS ORDERED: Tadalafil [Tadalafil] 5 MG Tablet PO SCH (21:00)
[2025-08-21 04:46] LABS: #Basophils 0.04 10x3/uL (0.0-0.2); #Eosinophils 0.21 10x3/uL (0.0-0.7); #Monocytes 0.43 10x3/uL (0.11-0.59); #Neutrophils 2.78 10x3/uL (1.40-6.50); %Basophils 0.8 % (0.0-1.0); %Eosinophils 4.2 % (0.0-10.0); %Lymphocytes 30.7 % (21.0-51.0); %Monocytes 8.6 % (0.0-10.0); %Neutrophils 55.5 % (42.0-75.0); Hematocrit 34.3 % (42.0-52.0); Hemoglobin 11.7 g/dL (14.0-18.0); Mean Corpuscular Hemoglobin 31.6 pg (27.0-31.0); Mean Corpuscular Volume 92.7 fL (78.0-98.0); Platelet Count 175 10x3/uL (130-400); Red Blood Cell (RBC) Count 3.70 mill/uL (4.70-6.10); White Blood Cell (WBC) Count 5.01 10x3/uL (4.8-10.8)
[2025-08-21 05:08] LABS: Cardiac Risk 2.2 (Less than 4.5); Cholesterol 161.0 mg/dl (< 200 Desired); HDL Cholesterol 73.0 mg/dL (>60 Neg Risk); LDL Cholesterol, Calculated 71.0 mg/dL; Triglycerides 84.0 mg/dL (Less than 150)
[2025-08-21] MEDS ORDERED: Losartan 25 MG TAB PO SCH (09:00)
[2025-08-21] MEDS: Aspirin 81 mg Enteric Coated Tablet PO SCH (09:24)
[2025-08-21] MEDS ORDERED: GUAIFENESIN DM SF 5 ML UDCUP PO PRN (10:59)
[2025-08-21] MEDS: Losartan 25 MG TAB PO SCH (14:19)
[2025-08-21] MEDS: niCARdipine 25 MG in Sodium Chloride 0.9% 250 ML 250 ML IVPB SCH (22:53)
[2025-08-21] MEDS: Acetaminophen 325 MG TAB PO PRN (23:53)
[2025-08-22 05:01] LABS: #Basophils 0.06 10x3/uL (0.0-0.2); #Eosinophils 0.07 10x3/uL (0.0-0.7); #Monocytes 0.18 10x3/uL (0.11-0.59); #Neutrophils 6.51 10x3/uL (1.40-6.50); %Basophils 0.8 % (0.0-1.0); %Eosinophils 0.9 % (0.0-10.0); %Lymphocytes 13.9 % (21.0-51.0); %Monocytes 2.3 % (0.0-10.0); %Neutrophils 81.8 % (42.0-75.0); Hematocrit 34.8 % (42.0-52.0); Hemoglobin 11.6 g/dL (14.0-18.0); Mean Corpuscular Hemoglobin 31.7 pg (27.0-31.0); Mean Corpuscular Volume 95.1 fL (78.0-98.0); Platelet Count 175 10x3/uL (130-400); Red Blood Cell (RBC) Count 3.66 mill/uL (4.70-6.10); White Blood Cell (WBC) Count 7.94 10x3/uL (4.8-10.8)
[2025-08-22 05:05] LABS: ALT (SGPT) 14 U/L (Less than 45); AST (SGOT) 22 U/L (11-34); Albumin 3.4 g/dL (3.1-4.5); Alkaline Phosphatase 65 U/L (40-110); Anion Gap 16 mmol/L (10-20); BUN (Urea Nitrogen) 22 mg/dL (8.4-25.7); Bilirubin, Total 0.8 mg/dL (0.3-1.2); Calc. Creatinine Clearance 57 mL/min (70-130); Calcium 8.8 mg/dL (7.8-10.44); Carbon Dioxide 21 mmol/L (23-31); Chloride 104 mmol/L (98-107); Globulin 2.5 g/dL (2.4-3.5); Glucose 361 mg/dL (80-115); Potassium 4.6 mmol/L (3.5-5.1); Sodium 136 mmol/L (136-145)
[2025-08-22] MEDS ORDERED: PROPOFOL 200 MG/20 ML VIAL ONE (08:43)
[2025-08-22] MEDS ORDERED: Lidocaine 1% PF 5 ML VIAL ONE (08:43)
[2025-08-22] MEDS: Losartan 25 MG TAB PO SCH (09:30)
[2025-08-22] MEDS: Mupirocin 1 GM TUBE NASAL DECOLONIZATION NASAL SCH (09:36)
[2025-08-22] MEDS: Insulin Glargine 30 UNITS/0.3 ML VIAL SC SCH ×3 (10:59→20:42)
[2025-08-22] MEDS: Oxymetazoline HCl 0.05% (30 ML BOT) NS PRN (16:43)
[2025-08-22] MEDS: Melatonin 3 MG TAB PO PRN (20:42)
[2025-08-23] MEDS: Insulin Glargine 30 UNITS/0.3 ML VIAL SC SCH ×2 (00:46→09:04)
[2025-08-23 05:05] LABS: ALT (SGPT) 12 U/L (Less than 45); AST (SGOT) 17 U/L (11-34); Albumin 3.0 g/dL (3.1-4.5); Alkaline Phosphatase 57 U/L (40-110); Anion Gap 7 mmol/L (10-20); BUN (Urea Nitrogen) 34 mg/dL (8.4-25.7); Bilirubin, Total 0.5 mg/dL (0.3-1.2); Calc. Creatinine Clearance 47 mL/min (70-130); Calcium 8.2 mg/dL (7.8-10.44); Carbon Dioxide 22 mmol/L (23-31); Chloride 105 mmol/L (98-107); Globulin 2.3 g/dL (2.4-3.5); Glucose 309 mg/dL (80-115); Potassium 3.7 mmol/L (3.5-5.1); Sodium 130 mmol/L (136-145)
[2025-08-23 06:05] VITALS: BMI 27.1
[2025-08-23] MEDS: PNEUMOC 20-VAL CONJ-DIP CRM/PF 0.5 ML SYRINGE IM ONE (08:51)
[2025-08-23] MEDS ORDERED: Insulin Glargine 30 UNITS/0.3 ML VIAL SC SCH ×3 (09:00→21:00)
[2025-08-23 11:03] LABS: RBC/HPF 0-3 HPF (0-3); WBC/HPF 0-3 HPF (0-3)
[2025-08-23 11:04] LABS: Bacteria/HPF Rare-Few HPF (None Seen)
[2025-08-23 20:39] LABS: Anion Gap 6 mmol/L (10-20); BUN (Urea Nitrogen) 27 mg/dL (8.4-25.7); Calc. Creatinine Clearance 64 mL/min (70-130); Calcium 8.1 mg/dL (7.8-10.44); Carbon Dioxide 23 mmol/L (23-31); Chloride 105 mmol/L (98-107); Glucose 198 mg/dL (80-115); Potassium 4.0 mmol/L (3.5-5.1); Sodium 130 mmol/L (136-145)
[2025-08-24 02:31] LABS: Bacteria/HPF None Seen HPF (None Seen); Glucose, Urine (Dipstick) >=1000 mg/dL (Negative); Leukocyte Negative Leu/uL (Negative); Protein, Urine (Dipstick) 100 mg/dL (Neg-Trace); RBC/HPF 0-3 HPF (0-3); Specific Gravity, Urine 1.009 (1.002-1.036); WBC/HPF 0-3 HPF (0-3)
[2025-08-24 05:39] LABS: Anion Gap 7 mmol/L (10-20); BUN (Urea Nitrogen) 25 mg/dL (8.4-25.7); Calc. Creatinine Clearance 73 mL/min (70-130); Calcium 7.9 mg/dL (7.8-10.44); Carbon Dioxide 20 mmol/L (23-31); Chloride 110 mmol/L (98-107); Glucose 147 mg/dL (80-115); Potassium 3.6 mmol/L (3.5-5.1); Sodium 133 mmol/L (136-145)
[2025-08-24] MEDS ORDERED: NIFEdipine XL 30 MG ER.TAB PO SCH (11:15)
[2025-08-24] MEDS: NIFEdipine XL 30 MG ER.TAB PO SCH (12:42)
[2025-08-24 15:03] VITALS: BP 155/71
[2025-08-24 15:04] VITALS: TEMP 98.8
[2025-08-25] MEDS ORDERED: NIFEdipine XL 30 MG ER.TAB PO SCH (09:00)
== END 2025-08-24 17:38 | disposition home or self-care (01) | DRG 69 ==
LOC: ERS 11:54 → OBS 15:10 → OBSVTOIN 08-21 13:43 → CCU 08-21 22:38 → 2NO 08-23 19:17
PROVIDERS: ADMIT Internal Medicine; ATTEND Internal Medicine
PROC: B24BZZ4 Ultrasonography of Heart with Aorta, Transesophageal (ICD-10-PCS; principal; 2025-08-22)
DX: G45.9 Transient cerebral ischemic attack, unspecified (principal); I16.1 Hypertensive emergency; N17.9 Acute kidney failure, unspecified; I10 Essential (primary) hypertension; E78.5 Hyperlipidemia, unspecified; E11.51 Type 2 diabetes mellitus with diabetic peripheral angiopathy without gangrene; E86.0 Dehydration; Z85.038 Personal history of other malignant neoplasm of large intestine
CPT/HCPCS: 36415; 36416; 70450; 70496; 70498; 70551; 71045; 80048; 80053; 80061; 81001; 81015; 83036; 83735; 83880; 84300; 84443; 84484; 85025; 85610; 85730; 93005; 93306; 93312; 96361; 96374; 96375; G0378; J0360; J1200; J1815; J2704; J2765; J7030; J7050; Q9967